=== PATIENT | male | born 1945 | race Hispanic/Latino ===

== ENCOUNTER 2021-11-08 10:06 | Inpatient (IN) | payer MEDICARE ==
[~2021-11-08] VITALS: Ht 165.1 cm; Wt 85.7 kg
[2021-11-08 11:01] LABS: ALBUMIN 2.6 g/dL (3.5-5.0); ALBUMIN/GLOBULIN RATIO 0.6 (0.8-2.0); ANION GAP 17.3 mmol/L (8-16); CREATININE, SERUM 5.16 mg/dL (0.72-1.25); POTASSIUM 3.3 mmol/L (3.5-5.1)
[2021-11-08 11:04] LABS: CALCIUM 6.7 mg/dL (8.4-10.2)
[2021-11-08 11:10] LABS: BASOPHILS # (AUTO) 0.1 (0.0-0.1); BASOPHILS % 0.5 % (0.0-1.0); EOSINOPHILS % 8.3 % (0.0-6.0); HEMATOCRIT 22.7 % (38.2-49.6); LYMPHOCYTES # (AUTO) 0.7 (1.0-3.2); LYMPHOCYTES % 5.8 % (18.0-39.1); MEAN CORPUSCULAR HGB CONC 30.8 g/dL (31-35); MEAN CORPUSCULAR VOLUME 97.4 fL (81-99); MONOCYTES % 7.9 % (4.4-11.3); NEUTROPHILS # (AUTO) 9.5 (2.1-6.9); NEUTROPHILS % 76.9 % (38.7-80.0); PLATELET COUNT 286 x10e3/uL (140-360); RED BLOOD COUNT 2.33 x10e6/uL (4.3-5.7); RED CELL DISTRIBUTION WIDTH 14.3 % (11.7-14.4)
[2021-11-08] MEDS ORDERED: HYDRALAZINE HCL 20 MG/ML VIAL IV STA (11:56)
[2021-11-08] MEDS ORDERED: ASPIRIN 81 MG CHEW TAB PO ONE (12:30)
[2021-11-08] MEDS ORDERED: CLONIDINE HCL 0.1 MG TAB PO PRN (13:45)
[2021-11-08] MEDS ORDERED: ONDANSETRON HCL INJ 2MG/ML 2ML 2 MG/ML VIAL IV PRN (13:45)
[2021-11-08] MEDS ORDERED: CALCIUM CHLORIDE 13.6 MEQ in SODIUM CHLORIDE 0.9% 100 ML 100 ML IV ONE (14:00)
[2021-11-08 14:08] LABS: % IRON SATURATION 16 % (15-50); IRON 30 ug/dL (65-175); TOTAL IRON BINDING CAPACITY 189 ug/dL (261-478); TRANSFERRIN 135 mg/dL (174-364)
[2021-11-08] MEDS ORDERED: POTASSIUM CHLORIDE 10MEQ EA PO ONE (14:30)
[2021-11-08 16:27] LABS: HEMATOCRIT 21.8 % (38.2-49.6)
[2021-11-08 16:29] LABS: HEMOGLOBIN 6.7 g/dL (14.0-18.0)
[2021-11-08] MEDS ORDERED: SODIUM CHLORIDE 0.9% 250ML 250 ML IV ONE (16:30)
[2021-11-08] MEDS: CARVEDILOL 3.125 MG TAB PO SCH (16:32)
[2021-11-08] MEDS: IRON SUCROSE 100 MG in SODIUM CHLORIDE 0.9% 100 ML 100 ML IV SCH (16:32)
[2021-11-08 16:36] LABS: CLARITY,URINE CLEAR (CLEAR); COLOR,URINE YELLOW (YELLOW); KETONES,URINE NEGATIVE (NEGATIVE); LEUKOCYTE ESTERASE ,URINE TRACE (NEGATIVE); NITRITE,URINE NEGATIVE (NEGATIVE); PROTEIN,URINE DIPSTICK >=300 (NEGATIVE); URINE UROBILINOGEN 0.2 mg/dL (0.2 - 1)
[2021-11-08 16:46] LABS: BACTERIA,URINE MANY /HPF; WBC,URINE (MAN) >50 /HPF (0-5)
[2021-11-08] MEDS ORDERED: FUROSEMIDE INJ 10 MG/ML 4 ML VIAL IV ONE (19:00)
[2021-11-08] MEDS: CLONIDINE HCL 0.1 MG TAB PO PRN (19:06)
[2021-11-08 19:39] LABS: CREATINE KINASE MB 4.8 ng/mL (0-5.0)
[2021-11-08] MEDS: HYDRALAZINE HCL 20 MG/ML VIAL IV PRN (20:04)
[2021-11-08] MEDS: FINASTERIDE 5 MG TAB PO SCH (20:43)
[2021-11-08] MEDS: ATORVASTATIN 40 MG TAB PO SCH (20:43)
[2021-11-08] MEDS: NIFEDIPINE CR 30 MG TAB PO SCH (21:00)
[2021-11-09] VITALS (7 sets, daily range): BP systolic 125–168; BP diastolic 56–84
[2021-11-09] MEDS: CLONIDINE HCL 0.1 MG TAB PO PRN (01:04)
[2021-11-09 03:34] LABS: CREATINE KINASE MB 4.6 ng/mL (0-5.0)
[2021-11-09] MEDS: LEVOTHYROXINE SODIUM 75 MCG TAB PO SCH (05:50)
[2021-11-09 05:55] LABS: BASOPHILS # (AUTO) 0.1 (0.0-0.1); BASOPHILS % 0.4 % (0.0-1.0); EOSINOPHILS % 8.8 % (0.0-6.0); HEMATOCRIT 21.4 % (38.2-49.6); LYMPHOCYTES # (AUTO) 0.6 (1.0-3.2); LYMPHOCYTES % 5.2 % (18.0-39.1); MEAN CORPUSCULAR HEMOGLOBIN 29.9 pg (28-32); MEAN CORPUSCULAR HGB CONC 31.3 g/dL (31-35); MEAN CORPUSCULAR VOLUME 95.5 fL (81-99); MONOCYTES # (AUTO) 0.9 (0.2-0.8); MONOCYTES % 7.9 % (4.4-11.3); NEUTROPHILS # (AUTO) 8.9 (2.1-6.9); NEUTROPHILS % 77.2 % (38.7-80.0); PLATELET COUNT 264 x10e3/uL (140-360); RED BLOOD COUNT 2.24 x10e6/uL (4.3-5.7); RED CELL DISTRIBUTION WIDTH 14.4 % (11.7-14.4)
[2021-11-09 06:03] LABS: ALBUMIN 2.5 g/dL (3.5-5.0); ALBUMIN/GLOBULIN RATIO 0.6 (0.8-2.0); ANION GAP 16.5 mmol/L (8-16); CALCIUM 7.2 mg/dL (8.4-10.2); CREATININE, SERUM 5.08 mg/dL (0.72-1.25); POTASSIUM 3.5 mmol/L (3.5-5.1)
[2021-11-09 06:26] LABS: HEMOGLOBIN 6.7 g/dL (14.0-18.0)
[2021-11-09] MEDS: CYANOCOBALAMIN INJ 1,000 MCG/ML VIAL IM SCH ×2 (07:16→12:21)
[2021-11-09] MEDS: FOLIC ACID 1 MG TAB PO SCH ×2 (07:16→12:21)
[2021-11-09] MEDS: CARVEDILOL 3.125 MG TAB PO SCH (07:16)
[2021-11-09] MEDS: ISOSORBIDE MONONITRATE 30 MG TAB CR PO SCH ×2 (07:17→12:21)
[2021-11-09] MEDS: CALCITRIOL 0.25 MCG CAP PO SCH ×2 (07:17→12:22)
[2021-11-09] MEDS ORDERED: IRON SUCROSE 100 MG in SODIUM CHLORIDE 0.9% 100 ML 100 ML IV SCH (09:00)
[2021-11-09] MEDS: CARVEDILOL 12.5 MG TAB PO SCH ×3 (09:00→17:50)
[2021-11-09] MEDS: FUROSEMIDE INJ 10 MG/ML 4 ML VIAL IV SCH ×2 (12:21→20:54)
[2021-11-09] MEDS: SEVELAMER CARBONATE 800 MG TAB PO SCH ×2 (12:21→17:50)
[2021-11-09] MEDS ORDERED: LIDOCAINE HCL 2% LOCAL INJ 5 ML SDV VIAL INJ ONE (12:54)
[2021-11-09] MEDS ORDERED: PROPOFOL IV EMULSION 10 MG/ML 20 ML VIAL ONE (12:54)
[2021-11-09] MEDS ORDERED: FENTANYL CITRATE/PF 100MCG/2 ML INJ ONE (13:21)
[2021-11-09] MEDS ORDERED: MIDAZOLAM HCL 2 MG/2 ML VIAL ONE (13:21)
[2021-11-09 14:30] LABS: CREATINE KINASE MB 5.7 ng/mL (0-5.0)
[2021-11-09] MEDS ORDERED: EPOETIN ALFA-EPBX 10,000 UNIT/ML VIAL SC SCH (14:30)
[2021-11-09] MEDS: IRON SUCROSE 100 MG in SODIUM CHLORIDE 0.9% 100 ML 100 ML IV SCH (17:49)
[2021-11-09] MEDS: ATORVASTATIN 40 MG TAB PO SCH (20:54)
[2021-11-09] MEDS: FINASTERIDE 5 MG TAB PO SCH (20:55)
[2021-11-09] MEDS: NIFEDIPINE CR 30 MG TAB PO SCH (20:55)
[2021-11-10 02:00] VITALS: BP 123/35
[2021-11-10 05:07] LABS: HEMATOCRIT 21.2 % (38.2-49.6)
[2021-11-10 05:27] LABS: ANION GAP 18.9 mmol/L (8-16); CALCIUM 7.6 mg/dL (8.4-10.2); CREATININE, SERUM 5.38 mg/dL (0.72-1.25); POTASSIUM 3.9 mmol/L (3.5-5.1)
[2021-11-10 05:42] LABS: HEMOGLOBIN 6.3 g/dL (14.0-18.0)
[2021-11-10] MEDS: LEVOTHYROXINE SODIUM 75 MCG TAB PO SCH (06:06)
[2021-11-10 08:00] VITALS: BP 143/67
[2021-11-10] MEDS: SEVELAMER CARBONATE 800 MG TAB PO SCH ×3 (08:00→17:00)
[2021-11-10] MEDS: ISOSORBIDE MONONITRATE 30 MG TAB CR PO SCH (09:00)
[2021-11-10] MEDS: FOLIC ACID 1 MG TAB PO SCH (09:00)
[2021-11-10] MEDS: FUROSEMIDE INJ 10 MG/ML 4 ML VIAL IV SCH ×2 (09:00→21:10)
[2021-11-10] MEDS: CALCITRIOL 0.25 MCG CAP PO SCH (09:00)
[2021-11-10] MEDS: CARVEDILOL 12.5 MG TAB PO SCH ×2 (09:00→17:38)
[2021-11-10] MEDS: CYANOCOBALAMIN INJ 1,000 MCG/ML VIAL IM SCH (09:00)
[2021-11-10] MEDS: METOLAZONE 5 MG TAB PO SCH (10:00)
[2021-11-10 10:20] LABS: INR 1.04; PROTHROMBIN TIME 14.5 seconds (11.9-14.5)
[2021-11-10 12:05] VITALS: BP 160/73
[2021-11-10] MEDS ORDERED: SODIUM CHLORIDE 0.9% 500ML 500 ML ONE (13:33)
[2021-11-10] MEDS ORDERED: HEPARIN SOD/SOD CHLORIDE 1,000 ML ONE (13:33)
[2021-11-10] MEDS ORDERED: MIDAZOLAM HCL 2 MG/2 ML VIAL ONE (13:34)
[2021-11-10] MEDS ORDERED: LIDOCAINE HCL 2% LOCAL 20 ML VIAL ONE (13:34)
[2021-11-10] MEDS ORDERED: FENTANYL CITRATE/PF 100MCG/2 ML INJ ONE (13:34)
[2021-11-10] MEDS ORDERED: HEPARIN SOD (PORCINE) 1000 UNIT/ML 30ML ONE (13:35)
[2021-11-10] MEDS ORDERED: ONDANSETRON HCL 4 MG ORAL DISINTEGRATING TAB PO PRN (13:45)
[2021-11-10] MEDS ORDERED: HEPARIN SOD (PORCINE) 1000 UNIT/ML SDV IV PRN (14:00)
[2021-11-10] MEDS ORDERED: MANNITOL 25% 12.5GM/50 ML VIAL IV PRN (14:00)
[2021-11-10] MEDS ORDERED: SODIUM CHLORIDE 0.9% 1000ML 2,000 ML IV PRN (14:00)
[2021-11-10] MEDS ORDERED: SODIUM CHLORIDE 0.9% 250ML 500 ML IV PRN (14:00)
[2021-11-10] MEDS ORDERED: ALBUMIN 25% 12.5GM 0.25 GM/ML BTL IV PRN (14:00)
[2021-11-10] MEDS ORDERED: SODIUM CHLORIDE 0.9% 50ML 50 ML ONE (14:27)
[2021-11-10] MEDS: IRON SUCROSE 100 MG in SODIUM CHLORIDE 0.9% 100 ML 100 ML IV SCH (17:35)
[2021-11-10] MEDS: PANTOPRAZOLE SOD 40 MG TABEC PO SCH (17:38)
[2021-11-10 20:00] VITALS: BP 166/75
[2021-11-10] MEDS: FINASTERIDE 5 MG TAB PO SCH (20:31)
[2021-11-10] MEDS: ATORVASTATIN 40 MG TAB PO SCH (20:31)
[2021-11-10] MEDS: NIFEDIPINE CR 30 MG TAB PO SCH (20:31)
[2021-11-10] MEDS: HYDRALAZINE HCL 20 MG/ML VIAL IV PRN (21:10)
[2021-11-10 21:13] VITALS: BP 166/75
[2021-11-11] VITALS (9 sets, daily range): BP systolic 133–200; BP diastolic 66–103
[2021-11-11] MEDS: LEVOTHYROXINE SODIUM 75 MCG TAB PO SCH (05:56)
[2021-11-11] MEDS: HYDRALAZINE HCL 20 MG/ML VIAL IV PRN ×2 (07:23→18:22)
[2021-11-11] MEDS: PANTOPRAZOLE SOD 40 MG TABEC PO SCH ×2 (07:30→16:40)
[2021-11-11] MEDS: SEVELAMER CARBONATE 800 MG TAB PO SCH ×3 (08:00→16:40)
[2021-11-11] MEDS ORDERED: EPOETIN ALFA-EPBX 10,000 UNIT/ML VIAL SC SCH ×2 (09:00→10:30)
[2021-11-11] MEDS: CARVEDILOL 12.5 MG TAB PO SCH ×2 (09:36→20:33)
[2021-11-11] MEDS: METOLAZONE 5 MG TAB PO SCH (09:36)
[2021-11-11] MEDS: FOLIC ACID 1 MG TAB PO SCH (09:36)
[2021-11-11] MEDS: ISOSORBIDE MONONITRATE 30 MG TAB CR PO SCH (09:36)
[2021-11-11] MEDS: CALCITRIOL 0.25 MCG CAP PO SCH (09:36)
[2021-11-11] MEDS: CLONIDINE HCL 0.1 MG TAB PO PRN ×2 (09:37→15:09)
[2021-11-11] MEDS: FUROSEMIDE INJ 10 MG/ML 4 ML VIAL IV SCH ×2 (10:30→22:01)
[2021-11-11] MEDS: CYANOCOBALAMIN INJ 1,000 MCG/ML VIAL IM SCH (10:30)
[2021-11-11] MEDS: IRON SUCROSE 100 MG in SODIUM CHLORIDE 0.9% 100 ML 100 ML IV SCH (15:09)
[2021-11-11] MEDS: LOSARTAN POTASSIUM 25 MG TAB PO SCH (16:26)
[2021-11-11] MEDS: ATORVASTATIN 40 MG TAB PO SCH (21:21)
[2021-11-11] MEDS: NIFEDIPINE CR 30 MG TAB PO SCH (21:21)
[2021-11-11] MEDS: FINASTERIDE 5 MG TAB PO SCH (21:21)
[2021-11-12] VITALS (8 sets, daily range): BP systolic 132–161; BP diastolic 50–88
[2021-11-12 05:37] LABS: HEMATOCRIT 20.9 % (38.2-49.6)
[2021-11-12 05:50] LABS: HEMOGLOBIN 6.5 g/dL (14.0-18.0)
[2021-11-12] MEDS: LEVOTHYROXINE SODIUM 75 MCG TAB PO SCH (06:22)
[2021-11-12] MEDS: CALCITRIOL 0.25 MCG CAP PO SCH (08:52)
[2021-11-12] MEDS: ISOSORBIDE MONONITRATE 30 MG TAB CR PO SCH (08:53)
[2021-11-12] MEDS: METOLAZONE 5 MG TAB PO SCH (08:53)
[2021-11-12] MEDS: FOLIC ACID 1 MG TAB PO SCH (08:54)
[2021-11-12] MEDS: CYANOCOBALAMIN INJ 1,000 MCG/ML VIAL IM SCH (08:54)
[2021-11-12] MEDS: LOSARTAN POTASSIUM 25 MG TAB PO SCH (08:54)
[2021-11-12] MEDS: CARVEDILOL 12.5 MG TAB PO SCH ×2 (08:54→21:01)
[2021-11-12] MEDS: SEVELAMER CARBONATE 800 MG TAB PO SCH ×3 (08:56→17:09)
[2021-11-12] MEDS: PANTOPRAZOLE SOD 40 MG TABEC PO SCH ×2 (08:56→17:11)
[2021-11-12] MEDS: FUROSEMIDE INJ 10 MG/ML 4 ML VIAL IV SCH ×3 (08:57→21:53)
[2021-11-12] MEDS ORDERED: HEPARIN SOD (PORCINE) 1000 UNIT/ML SDV IV PRN (13:15)
[2021-11-12] MEDS: IRON SUCROSE 100 MG in SODIUM CHLORIDE 0.9% 100 ML 100 ML IV SCH (16:30)
[2021-11-12] MEDS: CLONIDINE HCL 0.1 MG TAB PO PRN (17:28)
[2021-11-12] MEDS ORDERED: DIPHENHYDRAMINE HCL 25 MG CAP PO PRN (19:00)
[2021-11-12] MEDS ORDERED: PEG (High)/E-LYTE SOLN 4,000 ML BTL PO ONE (19:15)
[2021-11-12] MEDS: NIFEDIPINE CR 30 MG TAB PO SCH (21:01)
[2021-11-12] MEDS: FINASTERIDE 5 MG TAB PO SCH (21:01)
[2021-11-12] MEDS: ATORVASTATIN 40 MG TAB PO SCH (21:01)
[2021-11-13] VITALS (7 sets, daily range): BP systolic 136–161; BP diastolic 56–72
[2021-11-13] MEDS: LEVOTHYROXINE SODIUM 75 MCG TAB PO SCH (06:00)
[2021-11-13] MEDS: PANTOPRAZOLE SOD 40 MG TABEC PO SCH ×2 (07:30→16:48)
[2021-11-13] MEDS: SEVELAMER CARBONATE 800 MG TAB PO SCH ×3 (07:48→16:48)
[2021-11-13 08:13] LABS: CALCIUM 7.5 mg/dL (8.4-10.2); CREATININE, SERUM 4.59 mg/dL (0.72-1.25)
[2021-11-13] MEDS: CARVEDILOL 12.5 MG TAB PO SCH ×2 (10:27→21:25)
[2021-11-13] MEDS: METOLAZONE 5 MG TAB PO SCH (10:27)
[2021-11-13] MEDS: FOLIC ACID 1 MG TAB PO SCH (10:27)
[2021-11-13] MEDS: FUROSEMIDE INJ 10 MG/ML 4 ML VIAL IV SCH ×2 (10:27→21:27)
[2021-11-13] MEDS: CALCITRIOL 0.25 MCG CAP PO SCH (10:27)
[2021-11-13] MEDS: CYANOCOBALAMIN INJ 1,000 MCG/ML VIAL IM SCH (10:27)
[2021-11-13] MEDS: LOSARTAN POTASSIUM 25 MG TAB PO SCH (10:27)
[2021-11-13] MEDS: ISOSORBIDE MONONITRATE 30 MG TAB CR PO SCH (10:27)
[2021-11-13] MEDS ORDERED: PEG (High)/E-LYTE SOLN 4,000 ML BTL PO ONE ×2 (10:30→20:00)
[2021-11-13] MEDS ORDERED: MIDAZOLAM HCL 2 MG/2 ML VIAL ONE (12:11)
[2021-11-13] MEDS ORDERED: FENTANYL CITRATE/PF 100MCG/2 ML INJ ONE (12:11)
[2021-11-13] MEDS ORDERED: PROPOFOL IV EMULSION 10 MG/ML 20 ML VIAL ONE (13:20)
[2021-11-13] MEDS ORDERED: LIDOCAINE HCL 2% LOCAL INJ 5 ML SDV VIAL INJ ONE (13:20)
[2021-11-13] MEDS ORDERED: METOCLOPRAMIDE HCL 10 MG/2ML VIAL ONE (13:20)
[2021-11-13] MEDS ORDERED: POVIDONE IODINE 0.05% 0.05 % ML PO ONE (13:20)
[2021-11-13] MEDS ORDERED: GLUCAGON FOR INJ 1 MG VIAL ONE (13:20)
[2021-11-13] MEDS ORDERED: ONDANSETRON HCL INJ 2MG/ML 2ML 2 MG/ML VIAL ONE (13:20)
[2021-11-13] MEDS ORDERED: HYOSCYAMINE SULFATE 0.5 MG/ML INJ ONE (13:20)
[2021-11-13] MEDS: IRON SUCROSE 100 MG in SODIUM CHLORIDE 0.9% 100 ML 100 ML IV SCH (16:48)
[2021-11-13] MEDS: ATORVASTATIN 40 MG TAB PO SCH (21:25)
[2021-11-13] MEDS: FINASTERIDE 5 MG TAB PO SCH (21:26)
[2021-11-13] MEDS: NIFEDIPINE CR 30 MG TAB PO SCH (21:26)
[2021-11-13] MEDS ORDERED: BISACODYL 5 MG TAB EC PO ONE ×2 (22:45→23:15)
[2021-11-14] VITALS (7 sets, daily range): BP systolic 137–172; BP diastolic 61–91
[2021-11-14] MEDS: LEVOTHYROXINE SODIUM 75 MCG TAB PO SCH (05:47)
[2021-11-14] MEDS ORDERED: CITRATE OF MAGNESIA 300ML BOTTLE PO ONE (07:00)
[2021-11-14] MEDS: PANTOPRAZOLE SOD 40 MG TABEC PO SCH ×2 (07:30→16:45)
[2021-11-14] MEDS: SEVELAMER CARBONATE 800 MG TAB PO SCH ×3 (08:00→16:45)
[2021-11-14] MEDS: FUROSEMIDE INJ 10 MG/ML 4 ML VIAL IV SCH ×2 (09:18→20:41)
[2021-11-14] MEDS: HYDRALAZINE HCL 20 MG/ML VIAL IV PRN (09:18)
[2021-11-14] MEDS: CYANOCOBALAMIN INJ 1,000 MCG/ML VIAL IM SCH (09:18)
[2021-11-14] MEDS ORDERED: HYOSCYAMINE SULFATE 0.5 MG/ML INJ ONE (12:08)
[2021-11-14] MEDS ORDERED: PROPOFOL IV EMULSION 10 MG/ML 20 ML VIAL ONE (12:08)
[2021-11-14] MEDS ORDERED: FENTANYL CITRATE/PF 100MCG/2 ML INJ ONE (12:24)
[2021-11-14] MEDS ORDERED: MIDAZOLAM HCL 2 MG/2 ML VIAL ONE (12:24)
[2021-11-14] MEDS: IRON SUCROSE 100 MG in SODIUM CHLORIDE 0.9% 100 ML 100 ML IV SCH (14:00)
[2021-11-14 14:12] LABS: ALPHA 2 GLOBULIN URINE PEP 5.7 % (.)
[2021-11-14] MEDS ORDERED: SODIUM CHLORIDE 0.9% 250ML 250 ML ONE (14:12)
[2021-11-14 14:56] LABS: HEMATOCRIT 21.7 % (38.2-49.6)
[2021-11-14 14:58] LABS: HEMOGLOBIN 6.8 g/dL (14.0-18.0)
[2021-11-14 15:13] LABS: ANION GAP 16.6 mmol/L (8-16); CALCIUM 8.1 mg/dL (8.4-10.2); CREATININE, SERUM 4.33 mg/dL (0.72-1.25); POTASSIUM 3.6 mmol/L (3.5-5.1)
[2021-11-14] MEDS: FOLIC ACID 1 MG TAB PO SCH (16:45)
[2021-11-14] MEDS: LOSARTAN POTASSIUM 25 MG TAB PO SCH (16:45)
[2021-11-14] MEDS: METOLAZONE 5 MG TAB PO SCH (16:45)
[2021-11-14] MEDS: CALCITRIOL 0.25 MCG CAP PO SCH (16:45)
[2021-11-14] MEDS: CARVEDILOL 12.5 MG TAB PO SCH ×2 (16:45→20:41)
[2021-11-14] MEDS: ISOSORBIDE MONONITRATE 30 MG TAB CR PO SCH (16:45)
[2021-11-14] MEDS: ATORVASTATIN 40 MG TAB PO SCH (20:41)
[2021-11-14] MEDS: NIFEDIPINE CR 30 MG TAB PO SCH (20:42)
[2021-11-14] MEDS: FINASTERIDE 5 MG TAB PO SCH (20:42)
[2021-11-15] VITALS (10 sets, daily range): BP systolic 114–186; BP diastolic 51–88
[2021-11-15] MEDS: HYDRALAZINE HCL 20 MG/ML VIAL IV PRN ×2 (00:22→23:32)
[2021-11-15] MEDS: LEVOTHYROXINE SODIUM 75 MCG TAB PO SCH (05:14)
[2021-11-15 06:10] LABS: MEAN CORPUSCULAR HEMOGLOBIN 30.5 pg (28-32); MEAN CORPUSCULAR HGB CONC 30.7 g/dL (31-35); MEAN CORPUSCULAR VOLUME 99.5 fL (81-99); PLATELET COUNT 201 x10e3/uL (140-360); RED CELL DISTRIBUTION WIDTH 14.6 % (11.7-14.4)
[2021-11-15 06:15] LABS: HEMATOCRIT 19.9 % (38.2-49.6); HEMOGLOBIN 6.1 g/dL (14.0-18.0)
[2021-11-15] MEDS: PANTOPRAZOLE SOD 40 MG TABEC PO SCH ×2 (07:30→17:05)
[2021-11-15] MEDS: SEVELAMER CARBONATE 800 MG TAB PO SCH ×3 (08:00→17:05)
[2021-11-15 08:20] LABS: EOSINOPHILS % (MANUAL) 10 % (0-7); LYMPHOCYTES % (MANUAL) 4 % (19-48); MONOCYTES % (MANUAL) 3 % (3.4-9.0); NEUTROPHILS % (MANUAL) 82 % (40-74); PLATELET ESTIMATE ADEQUATE; PLATELET MORPHOLOGY COMMENT NORMAL; RBC MORPHOLOGY COMMENT NORMAL
[2021-11-15] MEDS: CYANOCOBALAMIN INJ 1,000 MCG/ML VIAL IM SCH (08:58)
[2021-11-15] MEDS: FUROSEMIDE INJ 10 MG/ML 4 ML VIAL IV SCH ×2 (09:00→21:36)
[2021-11-15] MEDS ORDERED: HEPARIN SOD (PORCINE) 1000 UNIT/ML SDV IV PRN (09:00)
[2021-11-15] MEDS: CARVEDILOL 12.5 MG TAB PO SCH ×2 (09:00→21:36)
[2021-11-15] MEDS: FOLIC ACID 1 MG TAB PO SCH (14:04)
[2021-11-15] MEDS: ISOSORBIDE MONONITRATE 30 MG TAB CR PO SCH (14:04)
[2021-11-15] MEDS: LOSARTAN POTASSIUM 25 MG TAB PO SCH (14:04)
[2021-11-15] MEDS: CALCITRIOL 0.25 MCG CAP PO SCH (14:05)
[2021-11-15] MEDS: METOLAZONE 5 MG TAB PO SCH (14:07)
[2021-11-15] MEDS: ATORVASTATIN 40 MG TAB PO SCH (21:36)
[2021-11-15] MEDS: FINASTERIDE 5 MG TAB PO SCH (21:37)
[2021-11-15] MEDS: NIFEDIPINE CR 30 MG TAB PO SCH (21:37)
[2021-11-16 04:00] VITALS: BP 154/50
[2021-11-16] MEDS: LEVOTHYROXINE SODIUM 75 MCG TAB PO SCH (05:20)
[2021-11-16] MEDS: PANTOPRAZOLE SOD 40 MG TABEC PO SCH ×2 (07:30→16:56)
[2021-11-16 07:52] VITALS: BP 138/50
[2021-11-16 07:58] VITALS: BP 138/50
[2021-11-16] MEDS: SEVELAMER CARBONATE 800 MG TAB PO SCH ×4 (08:00→19:46)
[2021-11-16] MEDS: CYANOCOBALAMIN INJ 1,000 MCG/ML VIAL IM SCH (08:52)
[2021-11-16] MEDS: FUROSEMIDE INJ 10 MG/ML 4 ML VIAL IV SCH ×2 (08:52→20:32)
[2021-11-16] MEDS: IRON SUCROSE 100 MG in SODIUM CHLORIDE 0.9% 100 ML 100 ML IV SCH (08:53)
[2021-11-16 10:19] LABS: HEMATOCRIT 24.1 % (38.2-49.6); HEMOGLOBIN 7.4 g/dL (14.0-18.0)
[2021-11-16] MEDS: CARVEDILOL 12.5 MG TAB PO SCH ×2 (10:22→20:32)
[2021-11-16] MEDS: LOSARTAN POTASSIUM 25 MG TAB PO SCH (10:22)
[2021-11-16] MEDS: FOLIC ACID 1 MG TAB PO SCH (10:22)
[2021-11-16] MEDS: METOLAZONE 5 MG TAB PO SCH (10:23)
[2021-11-16] MEDS: CALCITRIOL 0.25 MCG CAP PO SCH (10:23)
[2021-11-16] MEDS: ISOSORBIDE MONONITRATE 30 MG TAB CR PO SCH (10:23)
[2021-11-16] MEDS ORDERED: EPOETIN ALFA-EPBX 10,000 UNIT/ML VIAL SC ONE (11:00)
[2021-11-16 12:00] VITALS: BP 178/64
[2021-11-16 16:00] VITALS: BP 198/66
[2021-11-16] MEDS: ACETAMINOPHEN 325 MG TAB PO PRN (16:57)
[2021-11-16] MEDS: HYDRALAZINE HCL 20 MG/ML VIAL IV PRN (17:02)
[2021-11-16 20:00] VITALS: BP 152/54
[2021-11-16] MEDS: NIFEDIPINE CR 30 MG TAB PO SCH (20:32)
[2021-11-16] MEDS: FINASTERIDE 5 MG TAB PO SCH (20:32)
[2021-11-16] MEDS: ATORVASTATIN 40 MG TAB PO SCH (20:32)
[2021-11-17] VITALS (8 sets, daily range): BP systolic 134–178; BP diastolic 53–74
[2021-11-17] MEDS: LEVOTHYROXINE SODIUM 75 MCG TAB PO SCH (06:00)
[2021-11-17] MEDS ORDERED: SODIUM CHLORIDE 0.9% 1000ML 2,000 ML ONE (06:29)
[2021-11-17 07:01] LABS: ANION GAP 13.6 mmol/L (8-16); CALCIUM 7.9 mg/dL (8.4-10.2); CREATININE, SERUM 5.81 mg/dL (0.72-1.25); POTASSIUM 3.6 mmol/L (3.5-5.1)
[2021-11-17] MEDS: PANTOPRAZOLE SOD 40 MG TABEC PO SCH ×2 (07:30→16:48)
[2021-11-17] MEDS ORDERED: HEPARIN SOD (PORCINE) 1000 UNIT/ML SDV IV PRN (07:45)
[2021-11-17] MEDS: SEVELAMER CARBONATE 800 MG TAB PO SCH ×3 (08:00→16:48)
[2021-11-17 11:53] LABS: BASOPHILS # (AUTO) 0.1 (0.0-0.1); BASOPHILS % 0.3 % (0.0-1.0); EOSINOPHILS % 0.1 % (0.0-6.0); HEMATOCRIT 22.2 % (38.2-49.6); LYMPHOCYTES # (AUTO) 0.5 (1.0-3.2); MEAN CORPUSCULAR HEMOGLOBIN 30.8 pg (28-32); MEAN CORPUSCULAR HGB CONC 30.6 g/dL (31-35); MEAN CORPUSCULAR VOLUME 100.5 fL (81-99); MONOCYTES # (AUTO) 1.9 (0.2-0.8); MONOCYTES % 7.3 % (4.4-11.3); NEUTROPHILS # (AUTO) 23.3 (2.1-6.9); NEUTROPHILS % 89.6 % (38.7-80.0); PLATELET COUNT 222 x10e3/uL (140-360); RED BLOOD COUNT 2.21 x10e6/uL (4.3-5.7); RED CELL DISTRIBUTION WIDTH 15.2 % (11.7-14.4)
[2021-11-17 11:55] LABS: HEMOGLOBIN 6.8 g/dL (14.0-18.0)
[2021-11-17] MEDS: FUROSEMIDE INJ 10 MG/ML 4 ML VIAL IV SCH ×2 (12:25→20:06)
[2021-11-17] MEDS: IRON SUCROSE 100 MG in SODIUM CHLORIDE 0.9% 100 ML 100 ML IV SCH (12:25)
[2021-11-17] MEDS: CYANOCOBALAMIN INJ 1,000 MCG/ML VIAL IM SCH (12:26)
[2021-11-17] MEDS: CARVEDILOL 12.5 MG TAB PO SCH ×2 (12:28→20:06)
[2021-11-17] MEDS: FOLIC ACID 1 MG TAB PO SCH (12:28)
[2021-11-17] MEDS: METOLAZONE 5 MG TAB PO SCH (12:29)
[2021-11-17] MEDS: ISOSORBIDE MONONITRATE 30 MG TAB CR PO SCH (12:29)
[2021-11-17] MEDS: CALCITRIOL 0.25 MCG CAP PO SCH (12:29)
[2021-11-17 12:51] LABS: BAND NEUTROPHILS % (MANUAL) 3 %; EOSINOPHILS % (MANUAL) 1 % (0-7); LYMPHOCYTES % (MANUAL) 2 % (19-48); MONOCYTES % (MANUAL) 6 % (3.4-9.0); NEUTROPHILS % (MANUAL) 87 % (40-74)
[2021-11-17 12:52] LABS: PLATELET ESTIMATE ADEQUATE; PLATELET MORPHOLOGY COMMENT NORMAL; RBC MORPHOLOGY COMMENT NORMAL
[2021-11-17] MEDS: ACETAMINOPHEN 325 MG TAB PO PRN ×2 (14:38→23:37)
[2021-11-17] MEDS ORDERED: CEFTRIAXONE 1 GM in SODIUM CHLORIDE 0.9% 50ML 50 ML IV SCH (15:00)
[2021-11-17] MEDS: Vancomycin IV 1 GM in SODIUM CHLORIDE 0.9% 250ML 250 ML IV SCH (16:48)
[2021-11-17] MEDS: FINASTERIDE 5 MG TAB PO SCH (20:06)
[2021-11-17] MEDS: NIFEDIPINE CR 30 MG TAB PO SCH (20:06)
[2021-11-17] MEDS: ATORVASTATIN 40 MG TAB PO SCH (20:06)
[2021-11-18] VITALS (11 sets, daily range): BP systolic 98–161; BP diastolic 50–85
[2021-11-18] MEDS: CLONIDINE HCL 0.1 MG TAB PO PRN (01:15)
[2021-11-18] MEDS: LEVOTHYROXINE SODIUM 75 MCG TAB PO SCH (05:43)
[2021-11-18 06:35] LABS: BASOPHILS # (AUTO) 0.1 (0.0-0.1); BASOPHILS % 0.4 % (0.0-1.0); EOSINOPHILS # (AUTO) 0.2 (0.0-0.4); EOSINOPHILS % 0.8 % (0.0-6.0); HEMATOCRIT 23.6 % (38.2-49.6); HEMOGLOBIN 7.3 g/dL (14.0-18.0); LYMPHOCYTES # (AUTO) 0.7 (1.0-3.2); LYMPHOCYTES % 3.7 % (18.0-39.1); MEAN CORPUSCULAR HEMOGLOBIN 30.8 pg (28-32); MEAN CORPUSCULAR HGB CONC 30.9 g/dL (31-35); MEAN CORPUSCULAR VOLUME 99.6 fL (81-99); MONOCYTES # (AUTO) 1.5 (0.2-0.8); MONOCYTES % 7.6 % (4.4-11.3); NEUTROPHILS # (AUTO) 16.8 (2.1-6.9); NEUTROPHILS % 86.8 % (38.7-80.0); PLATELET COUNT 218 x10e3/uL (140-360); RED BLOOD COUNT 2.37 x10e6/uL (4.3-5.7); RED CELL DISTRIBUTION WIDTH 15.1 % (11.7-14.4)
[2021-11-18] MEDS: PANTOPRAZOLE SOD 40 MG TABEC PO SCH ×2 (08:54→17:10)
[2021-11-18] MEDS: FUROSEMIDE INJ 10 MG/ML 4 ML VIAL IV SCH ×2 (08:55→20:33)
[2021-11-18] MEDS: CYANOCOBALAMIN INJ 1,000 MCG/ML VIAL IM SCH (08:55)
[2021-11-18] MEDS: SEVELAMER CARBONATE 800 MG TAB PO SCH ×3 (08:55→17:10)
[2021-11-18] MEDS: FOLIC ACID 1 MG TAB PO SCH (08:58)
[2021-11-18] MEDS: ISOSORBIDE MONONITRATE 30 MG TAB CR PO SCH (08:58)
[2021-11-18] MEDS: CARVEDILOL 12.5 MG TAB PO SCH ×2 (08:58→20:33)
[2021-11-18] MEDS: CALCITRIOL 0.25 MCG CAP PO SCH (08:59)
[2021-11-18] MEDS: METOLAZONE 5 MG TAB PO SCH (09:06)
[2021-11-18] MEDS: IRON SUCROSE 100 MG in SODIUM CHLORIDE 0.9% 100 ML 100 ML IV SCH (09:09)
[2021-11-18] MEDS: ATORVASTATIN 40 MG TAB PO SCH (20:33)
[2021-11-18] MEDS: NIFEDIPINE CR 30 MG TAB PO SCH (20:34)
[2021-11-18] MEDS: FINASTERIDE 5 MG TAB PO SCH (20:34)
[2021-11-18] MEDS: ACETAMINOPHEN 325 MG TAB PO PRN (20:35)
[2021-11-18] MEDS ORDERED: BISACODYL 5 MG TAB EC PO ONE (23:45)
[2021-11-19] VITALS (10 sets, daily range): BP systolic 91–156; BP diastolic 49–70
[2021-11-19] MEDS: LEVOTHYROXINE SODIUM 75 MCG TAB PO SCH (05:05)
[2021-11-19] MEDS: CARVEDILOL 12.5 MG TAB PO SCH ×2 (09:00→21:50)
[2021-11-19] MEDS: IRON SUCROSE 100 MG in SODIUM CHLORIDE 0.9% 100 ML 100 ML IV SCH (09:23)
[2021-11-19] MEDS: FUROSEMIDE INJ 10 MG/ML 4 ML VIAL IV SCH ×2 (09:23→21:50)
[2021-11-19] MEDS: SEVELAMER CARBONATE 800 MG TAB PO SCH ×3 (09:23→16:33)
[2021-11-19] MEDS: CYANOCOBALAMIN INJ 1,000 MCG/ML VIAL IM SCH (09:23)
[2021-11-19] MEDS: PANTOPRAZOLE SOD 40 MG TABEC PO SCH ×2 (09:23→16:32)
[2021-11-19] MEDS: METOLAZONE 5 MG TAB PO SCH (09:24)
[2021-11-19] MEDS: FOLIC ACID 1 MG TAB PO SCH (09:24)
[2021-11-19] MEDS: CALCITRIOL 0.25 MCG CAP PO SCH (09:24)
[2021-11-19] MEDS: ISOSORBIDE MONONITRATE 30 MG TAB CR PO SCH (09:24)
[2021-11-19] MEDS ORDERED: BISACODYL 5 MG TAB EC PO ONE ×2 (11:45→23:30)
[2021-11-19] MEDS: DOCUSATE SODIUM 100 MG CAP PO SCH (16:32)
[2021-11-19] MEDS: ATORVASTATIN 40 MG TAB PO SCH (21:50)
[2021-11-19] MEDS: FINASTERIDE 5 MG TAB PO SCH (21:50)
[2021-11-19] MEDS: NIFEDIPINE CR 30 MG TAB PO SCH (21:50)
[2021-11-20] VITALS (7 sets, daily range): BP systolic 153–178; BP diastolic 58–70
[2021-11-20 05:55] LABS: BASOPHILS # (AUTO) 0.1 (0.0-0.1); BASOPHILS % 0.4 % (0.0-1.0); EOSINOPHILS # (AUTO) 0.6 (0.0-0.4); EOSINOPHILS % 5.4 % (0.0-6.0); HEMATOCRIT 21.1 % (38.2-49.6); LYMPHOCYTES # (AUTO) 0.7 (1.0-3.2); LYMPHOCYTES % 5.9 % (18.0-39.1); MEAN CORPUSCULAR HGB CONC 31.8 g/dL (31-35); MEAN CORPUSCULAR VOLUME 94.6 fL (81-99); MONOCYTES # (AUTO) 1.4 (0.2-0.8); MONOCYTES % 12.1 % (4.4-11.3); NEUTROPHILS # (AUTO) 8.7 (2.1-6.9); NEUTROPHILS % 75.7 % (38.7-80.0); PLATELET COUNT 222 x10e3/uL (140-360); RED BLOOD COUNT 2.23 x10e6/uL (4.3-5.7); RED CELL DISTRIBUTION WIDTH 14.6 % (11.7-14.4)
[2021-11-20 06:06] LABS: HEMOGLOBIN 6.7 g/dL (14.0-18.0)
[2021-11-20] MEDS: LEVOTHYROXINE SODIUM 75 MCG TAB PO SCH (06:15)
[2021-11-20 06:35] LABS: ANION GAP 18.8 mmol/L (8-16); CALCIUM 7.8 mg/dL (8.4-10.2); CREATININE, SERUM 8.2 mg/dL (0.72-1.25); POTASSIUM 3.8 mmol/L (3.5-5.1)
[2021-11-20] MEDS: PANTOPRAZOLE SOD 40 MG TABEC PO SCH ×2 (07:30→17:30)
[2021-11-20] MEDS: SEVELAMER CARBONATE 800 MG TAB PO SCH ×3 (08:00→17:00)
[2021-11-20] MEDS: FUROSEMIDE INJ 10 MG/ML 4 ML VIAL IV SCH (09:00)
[2021-11-20] MEDS: CYANOCOBALAMIN INJ 1,000 MCG/ML VIAL IM SCH (09:00)
[2021-11-20] MEDS: IRON SUCROSE 100 MG in SODIUM CHLORIDE 0.9% 100 ML 100 ML IV SCH (09:00)
[2021-11-20] MEDS: CARVEDILOL 12.5 MG TAB PO SCH ×2 (09:00→22:20)
[2021-11-20] MEDS: FOLIC ACID 1 MG TAB PO SCH (09:00)
[2021-11-20] MEDS: ISOSORBIDE MONONITRATE 30 MG TAB CR PO SCH (09:00)
[2021-11-20] MEDS: DOCUSATE SODIUM 100 MG CAP PO SCH ×2 (09:00→13:39)
[2021-11-20] MEDS: CALCITRIOL 0.25 MCG CAP PO SCH (09:00)
[2021-11-20] MEDS: METOLAZONE 5 MG TAB PO SCH (09:00)
[2021-11-20 12:17] LABS: INR 1.11; PROTHROMBIN TIME 15.3 seconds (11.9-14.5)
[2021-11-20 12:18] LABS: PARTIAL THROMBOPLASTIN TIME 41.1 seconds (23.8-35.5)
[2021-11-20] MEDS ORDERED: POLYETHYLENE GLYCOL 3350 17 GM PACK PO SCH (12:45)
[2021-11-20] MEDS: EPOETIN ALFA-EPBX 10,000 UNIT/ML VIAL SC SCH (17:45)
[2021-11-20] MEDS: Vancomycin IV 1 GM in SODIUM CHLORIDE 0.9% 250ML 250 ML IV SCH (18:00)
[2021-11-20] MEDS: NIFEDIPINE CR 30 MG TAB PO SCH (22:20)
[2021-11-20] MEDS: ATORVASTATIN 40 MG TAB PO SCH (22:20)
[2021-11-20] MEDS: POLYETHYLENE GLYCOL 3350 17 GM PACK PO SCH (22:20)
[2021-11-20] MEDS: FINASTERIDE 5 MG TAB PO SCH (22:20)
[2021-11-20] MEDS ORDERED: BISACODYL 5 MG TAB EC PO ONE ×2 (23:45)
[2021-11-20] MEDS: HYDRALAZINE HCL 20 MG/ML VIAL IV PRN (23:59)
[2021-11-21] VITALS (10 sets, daily range): BP systolic 129–197; BP diastolic 48–68
[2021-11-21 05:29] LABS: HEMATOCRIT 21.9 % (38.2-49.6); MEAN CORPUSCULAR HEMOGLOBIN 29.7 pg (28-32); MEAN CORPUSCULAR HGB CONC 31.1 g/dL (31-35); MEAN CORPUSCULAR VOLUME 95.6 fL (81-99); PLATELET COUNT 238 x10e3/uL (140-360); RED BLOOD COUNT 2.29 x10e6/uL (4.3-5.7); RED CELL DISTRIBUTION WIDTH 14.7 % (11.7-14.4)
[2021-11-21 05:37] LABS: HEMOGLOBIN 6.8 g/dL (14.0-18.0)
[2021-11-21] MEDS: LEVOTHYROXINE SODIUM 75 MCG TAB PO SCH (06:00)
[2021-11-21] MEDS: PANTOPRAZOLE SOD 40 MG TABEC PO SCH ×2 (07:30→16:43)
[2021-11-21] MEDS: SEVELAMER CARBONATE 800 MG TAB PO SCH ×3 (08:00→16:44)
[2021-11-21] MEDS: DOCUSATE SODIUM 100 MG CAP PO SCH ×2 (08:24→16:43)
[2021-11-21] MEDS: IRON SUCROSE 100 MG in SODIUM CHLORIDE 0.9% 100 ML 100 ML IV SCH (08:24)
[2021-11-21] MEDS: CYANOCOBALAMIN INJ 1,000 MCG/ML VIAL IM SCH (08:24)
[2021-11-21] MEDS: CARVEDILOL 12.5 MG TAB PO SCH ×2 (08:24→20:35)
[2021-11-21] MEDS: ISOSORBIDE MONONITRATE 30 MG TAB CR PO SCH (08:25)
[2021-11-21] MEDS: FOLIC ACID 1 MG TAB PO SCH (08:25)
[2021-11-21] MEDS: CALCITRIOL 0.25 MCG CAP PO SCH (08:26)
[2021-11-21 08:47] LABS: EOSINOPHILS % (MANUAL) 9 % (0-7); LYMPHOCYTES % (MANUAL) 3 % (19-48); MONOCYTES % (MANUAL) 6 % (3.4-9.0); NEUTROPHILS % (MANUAL) 81 % (40-74); PLATELET ESTIMATE ADEQUATE; PLATELET MORPHOLOGY COMMENT NORMAL
[2021-11-21 08:48] LABS: RBC MORPHOLOGY COMMENT NORMAL
[2021-11-21] MEDS ORDERED: LIDOCAINE HCL 1% LOCAL INJ 20 ML VIAL ONE (11:50)
[2021-11-21] MEDS ORDERED: BUPIVACAINE 0.25% 30ML SDV ONE (11:50)
[2021-11-21] MEDS ORDERED: BUPIVACAINE HCL 0.5% INJ 30 ML VIAL INJ ONE (11:50)
[2021-11-21] MEDS ORDERED: Morphine 2mg Syringe 2 MG/ML SYR IV PRN (12:15)
[2021-11-21] MEDS ORDERED: HYDROCODONE/APAP 5MG-325MG TAB PO PRN (12:15)
[2021-11-21] MEDS ORDERED: ONDANSETRON HCL INJ 2MG/ML 2ML 2 MG/ML VIAL ONE (12:52)
[2021-11-21] MEDS ORDERED: KETOROLAC TROMETHAMINE 30 MG/ML VIAL ONE (12:52)
[2021-11-21] MEDS ORDERED: SEVOFLURANE INHAL SOLN 250 ML PEN BTL ONE (12:52)
[2021-11-21] MEDS ORDERED: PROPOFOL IV EMULSION 10 MG/ML 20 ML VIAL ONE (12:52)
[2021-11-21] MEDS ORDERED: DEXAMETHASONE SOD PHOS INJ 4 MG/ML SDV ONE (12:52)
[2021-11-21] MEDS ORDERED: ROCURONIUM BROMIDE 10 MG/ML 5ML VIAL IV ONE (12:52)
[2021-11-21] MEDS ORDERED: LIDOCAINE HCL 2% LOCAL INJ 5 ML SDV VIAL INJ ONE (12:52)
[2021-11-21] MEDS ORDERED: SUCCINYLCHOLINE CHLORIDE 20 MG/ML 10ML VIAL ONE (12:52)
[2021-11-21] MEDS ORDERED: POVIDONE IODINE 0.05% 0.05 % ML PO ONE (12:52)
[2021-11-21] MEDS ORDERED: MIDAZOLAM HCL 2 MG/2 ML VIAL ONE (13:16)
[2021-11-21] MEDS ORDERED: FENTANYL CITRATE/PF 100MCG/2 ML INJ ONE (13:16)
[2021-11-21] MEDS: Cefazolin 1 GM in SODIUM CHLORIDE 0.9% 50ML 50 ML IV SCH (17:37)
[2021-11-21] MEDS: POLYETHYLENE GLYCOL 3350 17 GM PACK PO SCH (20:35)
[2021-11-21] MEDS: FINASTERIDE 5 MG TAB PO SCH (20:35)
[2021-11-21] MEDS: ATORVASTATIN 40 MG TAB PO SCH (20:35)
[2021-11-21] MEDS: NIFEDIPINE CR 30 MG TAB PO SCH (20:35)
[2021-11-22] VITALS (8 sets, daily range): BP systolic 146–175; BP diastolic 55–70
[2021-11-22] MEDS: PANTOPRAZOLE SOD 40 MG TABEC PO SCH ×2 (06:29→16:38)
[2021-11-22] MEDS: LEVOTHYROXINE SODIUM 75 MCG TAB PO SCH (06:29)
[2021-11-22 07:16] LABS: ANION GAP 15.6 mmol/L (8-16); CALCIUM 7.4 mg/dL (8.4-10.2); CREATININE, SERUM 7.35 mg/dL (0.72-1.25); POTASSIUM 3.6 mmol/L (3.5-5.1)
[2021-11-22] MEDS: CARVEDILOL 12.5 MG TAB PO SCH ×2 (08:27→20:58)
[2021-11-22] MEDS: DOCUSATE SODIUM 100 MG CAP PO SCH ×2 (08:27→16:38)
[2021-11-22] MEDS: FOLIC ACID 1 MG TAB PO SCH (08:27)
[2021-11-22] MEDS: SEVELAMER CARBONATE 800 MG TAB PO SCH ×3 (08:27→16:38)
[2021-11-22] MEDS: ISOSORBIDE MONONITRATE 30 MG TAB CR PO SCH (08:27)
[2021-11-22] MEDS: IRON SUCROSE 100 MG in SODIUM CHLORIDE 0.9% 100 ML 100 ML IV SCH (08:27)
[2021-11-22] MEDS: CYANOCOBALAMIN INJ 1,000 MCG/ML VIAL IM SCH (08:27)
[2021-11-22] MEDS: CALCITRIOL 0.25 MCG CAP PO SCH (08:28)
[2021-11-22] MEDS: EPOETIN ALFA-EPBX 10,000 UNIT/ML VIAL SC SCH (15:33)
[2021-11-22] MEDS: Cefazolin 1 GM in SODIUM CHLORIDE 0.9% 50ML 50 ML IV SCH (16:59)
[2021-11-22] MEDS: CLONIDINE HCL 0.1 MG TAB PO PRN ×2 (18:45→23:57)
[2021-11-22] MEDS: ATORVASTATIN 40 MG TAB PO SCH (20:58)
[2021-11-22] MEDS: NIFEDIPINE CR 30 MG TAB PO SCH (20:58)
[2021-11-22] MEDS: POLYETHYLENE GLYCOL 3350 17 GM PACK PO SCH (20:58)
[2021-11-22] MEDS: FINASTERIDE 5 MG TAB PO SCH (20:58)
[2021-11-22] MEDS ORDERED: BISACODYL 5 MG TAB EC PO ONE (23:30)
[2021-11-23] VITALS (7 sets, daily range): BP systolic 108–189; BP diastolic 48–76
[2021-11-23] MEDS ORDERED: BISACODYL 5 MG TAB EC PO ONE ×3 (00:05→23:30)
[2021-11-23] MEDS: LEVOTHYROXINE SODIUM 75 MCG TAB PO SCH (04:41)
[2021-11-23] MEDS: HYDRALAZINE HCL 20 MG/ML VIAL IV PRN (05:31)
[2021-11-23] MEDS: PANTOPRAZOLE SOD 40 MG TABEC PO SCH ×2 (07:30→16:35)
[2021-11-23] MEDS: SEVELAMER CARBONATE 800 MG TAB PO SCH ×3 (08:00→16:35)
[2021-11-23] MEDS: DOCUSATE SODIUM 100 MG CAP PO SCH ×2 (09:08→16:35)
[2021-11-23] MEDS: CYANOCOBALAMIN INJ 1,000 MCG/ML VIAL IM SCH (09:08)
[2021-11-23] MEDS: IRON SUCROSE 100 MG in SODIUM CHLORIDE 0.9% 100 ML 100 ML IV SCH (09:08)
[2021-11-23] MEDS: CARVEDILOL 12.5 MG TAB PO SCH ×2 (09:09→21:10)
[2021-11-23] MEDS: FOLIC ACID 1 MG TAB PO SCH (09:09)
[2021-11-23] MEDS: ISOSORBIDE MONONITRATE 30 MG TAB CR PO SCH (09:10)
[2021-11-23] MEDS: CALCITRIOL 0.25 MCG CAP PO SCH (09:10)
[2021-11-23] MEDS ORDERED: HEPARIN SOD (PORCINE) 1000 UNIT/ML SDV ONE (11:04)
[2021-11-23 12:10] LABS: BASOPHILS # (AUTO) 0.1 (0.0-0.1); BASOPHILS % 0.5 % (0.0-1.0); EOSINOPHILS % 7.5 % (0.0-6.0); LYMPHOCYTES # (AUTO) 0.9 (1.0-3.2); LYMPHOCYTES % 6.5 % (18.0-39.1); MEAN CORPUSCULAR HGB CONC 31.9 g/dL (31-35); MEAN CORPUSCULAR VOLUME 97.1 fL (81-99); MONOCYTES # (AUTO) 1.1 (0.2-0.8); NEUTROPHILS # (AUTO) 9.9 (2.1-6.9); NEUTROPHILS % 75.2 % (38.7-80.0); PLATELET COUNT 307 x10e3/uL (140-360); RED CELL DISTRIBUTION WIDTH 14.8 % (11.7-14.4)
[2021-11-23 12:13] LABS: HEMATOCRIT 20.4 % (38.2-49.6); HEMOGLOBIN 6.5 g/dL (14.0-18.0)
[2021-11-23 12:24] LABS: ANION GAP 15.3 mmol/L (8-16); CALCIUM 7.5 mg/dL (8.4-10.2); CREATININE, SERUM 7.78 mg/dL (0.72-1.25); POTASSIUM 4.3 mmol/L (3.5-5.1)
[2021-11-23 12:26] LABS: CHOL/HDL RATIO 4.8 (3.9-4.7)
[2021-11-23] MEDS: Cefazolin 1 GM in SODIUM CHLORIDE 0.9% 50ML 50 ML IV SCH (17:34)
[2021-11-23] MEDS: FINASTERIDE 5 MG TAB PO SCH (21:10)
[2021-11-23] MEDS: ATORVASTATIN 40 MG TAB PO SCH (21:10)
[2021-11-23] MEDS: NIFEDIPINE CR 30 MG TAB PO SCH (21:10)
[2021-11-23] MEDS: POLYETHYLENE GLYCOL 3350 17 GM PACK PO SCH (21:10)
[2021-11-24] VITALS (9 sets, daily range): BP systolic 133–169; BP diastolic 54–70
[2021-11-24] MEDS ORDERED: BISACODYL 5 MG TAB EC PO ONE
[2021-11-24 05:00] LABS: BASOPHILS # (AUTO) 0.1 (0.0-0.1); BASOPHILS % 0.5 % (0.0-1.0); EOSINOPHILS # (AUTO) 1.2 (0.0-0.4); EOSINOPHILS % 9.5 % (0.0-6.0); LYMPHOCYTES # (AUTO) 0.9 (1.0-3.2); LYMPHOCYTES % 7.8 % (18.0-39.1); MEAN CORPUSCULAR HEMOGLOBIN 30.2 pg (28-32); MEAN CORPUSCULAR HGB CONC 31.3 g/dL (31-35); MEAN CORPUSCULAR VOLUME 96.6 fL (81-99); MONOCYTES # (AUTO) 1.2 (0.2-0.8); MONOCYTES % 9.9 % (4.4-11.3); NEUTROPHILS # (AUTO) 8.3 (2.1-6.9); NEUTROPHILS % 68.9 % (38.7-80.0); PLATELET COUNT 258 x10e3/uL (140-360); RED BLOOD COUNT 2.05 x10e6/uL (4.3-5.7); RED CELL DISTRIBUTION WIDTH 14.8 % (11.7-14.4)
[2021-11-24] MEDS ORDERED: BISACODYL 10 MG SUPP PR ONE (05:00)
[2021-11-24 05:07] LABS: HEMATOCRIT 19.8 % (38.2-49.6); HEMOGLOBIN 6.2 g/dL (14.0-18.0)
[2021-11-24 05:17] LABS: ANION GAP 14.9 mmol/L (8-16); CALCIUM 7.7 mg/dL (8.4-10.2); CREATININE, SERUM 6.31 mg/dL (0.72-1.25); POTASSIUM 3.9 mmol/L (3.5-5.1)
[2021-11-24] MEDS: LEVOTHYROXINE SODIUM 75 MCG TAB PO SCH (05:35)
[2021-11-24] MEDS ORDERED: HEPARIN SOD (PORCINE) 1000 UNIT/ML SDV IV PRN (07:15)
[2021-11-24] MEDS: PANTOPRAZOLE SOD 40 MG TABEC PO SCH ×2 (07:30→17:31)
[2021-11-24] MEDS: SEVELAMER CARBONATE 800 MG TAB PO SCH ×3 (08:00→17:33)
[2021-11-24] MEDS ORDERED: BENZOCAINE 20% SPR 60 ML CAN ONE (08:31)
[2021-11-24] MEDS ORDERED: SODIUM CHLORIDE 0.9% 1000ML 1,000 ML ONE (08:31)
[2021-11-24] MEDS: CARVEDILOL 12.5 MG TAB PO SCH ×2 (09:00→20:52)
[2021-11-24] MEDS: CALCITRIOL 0.25 MCG CAP PO SCH (09:00)
[2021-11-24] MEDS: ISOSORBIDE MONONITRATE 30 MG TAB CR PO SCH (09:00)
[2021-11-24] MEDS: FOLIC ACID 1 MG TAB PO SCH (09:00)
[2021-11-24] MEDS: DOCUSATE SODIUM 100 MG CAP PO SCH ×2 (09:00→17:33)
[2021-11-24] MEDS ORDERED: BENZOCAINE/TETRACAINE/BUTAMBEN AERO SPRAY 56 GM CAN ONE (10:55)
[2021-11-24] MEDS ORDERED: LIDOCAINE HCL 2% LOCAL INJ 5 ML SDV VIAL INJ ONE (13:15)
[2021-11-24] MEDS ORDERED: POVIDONE IODINE 0.05% 0.05 % ML PO ONE (13:15)
[2021-11-24] MEDS ORDERED: PROPOFOL IV EMULSION 10 MG/ML 20 ML VIAL ONE (13:15)
[2021-11-24] MEDS: Cefazolin 1 GM in SODIUM CHLORIDE 0.9% 50ML 50 ML IV SCH (17:22)
[2021-11-24] MEDS: EPOETIN ALFA-EPBX 10,000 UNIT/ML VIAL SC SCH (17:24)
[2021-11-24] MEDS: CYANOCOBALAMIN INJ 1,000 MCG/ML VIAL IM SCH (17:33)
[2021-11-24] MEDS: IRON SUCROSE 100 MG in SODIUM CHLORIDE 0.9% 100 ML 100 ML IV SCH (18:56)
[2021-11-24] MEDS: ATORVASTATIN 40 MG TAB PO SCH (20:51)
[2021-11-24] MEDS: FINASTERIDE 5 MG TAB PO SCH (20:52)
[2021-11-24] MEDS: NIFEDIPINE CR 30 MG TAB PO SCH (20:52)
[2021-11-24] MEDS: POLYETHYLENE GLYCOL 3350 17 GM PACK PO SCH (20:52)
[2021-11-25] VITALS (8 sets, daily range): BP systolic 121–167; BP diastolic 52–74
[2021-11-25] MEDS: LEVOTHYROXINE SODIUM 75 MCG TAB PO SCH (05:05)
[2021-11-25] MEDS: SEVELAMER CARBONATE 800 MG TAB PO SCH ×3 (08:00→16:54)
[2021-11-25 08:12] LABS: BASOPHILS # (AUTO) 0.1 (0.0-0.1); BASOPHILS % 0.8 % (0.0-1.0); EOSINOPHILS # (AUTO) 1.1 (0.0-0.4); EOSINOPHILS % 9.8 % (0.0-6.0); HEMATOCRIT 22.5 % (38.2-49.6); LYMPHOCYTES # (AUTO) 0.9 (1.0-3.2); LYMPHOCYTES % 7.9 % (18.0-39.1); MEAN CORPUSCULAR HEMOGLOBIN 30.6 pg (28-32); MEAN CORPUSCULAR HGB CONC 31.1 g/dL (31-35); MEAN CORPUSCULAR VOLUME 98.3 fL (81-99); MONOCYTES % 8.4 % (4.4-11.3); NEUTROPHILS # (AUTO) 8.2 (2.1-6.9); NEUTROPHILS % 70.4 % (38.7-80.0); PLATELET COUNT 256 x10e3/uL (140-360); RED BLOOD COUNT 2.29 x10e6/uL (4.3-5.7)
[2021-11-25 08:24] LABS: ALBUMIN 2.5 g/dL (3.5-5.0); ALBUMIN/GLOBULIN RATIO 0.6 (0.8-2.0); ANION GAP 13.1 mmol/L (8-16); CALCIUM 8.2 mg/dL (8.4-10.2); CREATININE, SERUM 5.88 mg/dL (0.72-1.25); POTASSIUM 4.1 mmol/L (3.5-5.1)
[2021-11-25] MEDS: CALCITRIOL 0.25 MCG CAP PO SCH (12:00)
[2021-11-25] MEDS: CYANOCOBALAMIN INJ 1,000 MCG/ML VIAL IM SCH (12:00)
[2021-11-25] MEDS: ISOSORBIDE MONONITRATE 30 MG TAB CR PO SCH (12:00)
[2021-11-25] MEDS: DOCUSATE SODIUM 100 MG CAP PO SCH ×2 (12:00→16:53)
[2021-11-25] MEDS: PANTOPRAZOLE SOD 40 MG TABEC PO SCH ×2 (12:00→16:53)
[2021-11-25] MEDS: IRON SUCROSE 100 MG in SODIUM CHLORIDE 0.9% 100 ML 100 ML IV SCH (12:00)
[2021-11-25] MEDS: FOLIC ACID 1 MG TAB PO SCH (12:00)
[2021-11-25] MEDS: CARVEDILOL 12.5 MG TAB PO SCH ×2 (12:00→20:50)
[2021-11-25] MEDS: HYDRALAZINE HCL 20 MG/ML VIAL IV PRN (16:54)
[2021-11-25] MEDS: Cefazolin 1 GM in SODIUM CHLORIDE 0.9% 50ML 50 ML IV SCH (16:54)
[2021-11-25] MEDS: POLYETHYLENE GLYCOL 3350 17 GM PACK PO SCH (19:05)
[2021-11-25] MEDS: ATORVASTATIN 40 MG TAB PO SCH (20:50)
[2021-11-25] MEDS: FINASTERIDE 5 MG TAB PO SCH (20:50)
[2021-11-25] MEDS: NIFEDIPINE CR 30 MG TAB PO SCH (20:50)
[2021-11-26] VITALS (8 sets, daily range): BP systolic 128–212; BP diastolic 57–97
[2021-11-26] MEDS: LEVOTHYROXINE SODIUM 75 MCG TAB PO SCH (05:08)
[2021-11-26] MEDS: HYDRALAZINE HCL 20 MG/ML VIAL IV PRN (06:34)
[2021-11-26] MEDS: PANTOPRAZOLE SOD 40 MG TABEC PO SCH ×2 (07:30→16:38)
[2021-11-26] MEDS: SEVELAMER CARBONATE 800 MG TAB PO SCH ×3 (08:00→16:38)
[2021-11-26] MEDS: DOCUSATE SODIUM 100 MG CAP PO SCH ×2 (09:35→16:38)
[2021-11-26] MEDS: FOLIC ACID 1 MG TAB PO SCH (09:35)
[2021-11-26] MEDS: CALCITRIOL 0.25 MCG CAP PO SCH (09:35)
[2021-11-26] MEDS: CARVEDILOL 12.5 MG TAB PO SCH ×2 (09:35→20:46)
[2021-11-26] MEDS: CYANOCOBALAMIN INJ 1,000 MCG/ML VIAL IM SCH (09:35)
[2021-11-26] MEDS: ISOSORBIDE MONONITRATE 30 MG TAB CR PO SCH (09:35)
[2021-11-26] MEDS: IRON SUCROSE 100 MG in SODIUM CHLORIDE 0.9% 100 ML 100 ML IV SCH (09:47)
[2021-11-26] MEDS: Cefazolin 1 GM in SODIUM CHLORIDE 0.9% 50ML 50 ML IV SCH (17:23)
[2021-11-26] MEDS: POLYETHYLENE GLYCOL 3350 17 GM PACK PO SCH (19:16)
[2021-11-26] MEDS: ATORVASTATIN 40 MG TAB PO SCH (20:44)
[2021-11-26] MEDS: NIFEDIPINE CR 30 MG TAB PO SCH (20:46)
[2021-11-26] MEDS: FINASTERIDE 5 MG TAB PO SCH (20:46)
[2021-11-27] MEDS: HYDRALAZINE HCL 20 MG/ML VIAL IV PRN (00:30)
[2021-11-27 00:36] VITALS: BP 201/77
[2021-11-27 03:42] VITALS: BP 157/54
[2021-11-27] MEDS: LEVOTHYROXINE SODIUM 75 MCG TAB PO SCH (05:10)
[2021-11-27] MEDS: PANTOPRAZOLE SOD 40 MG TABEC PO SCH (07:30)
[2021-11-27] MEDS: SEVELAMER CARBONATE 800 MG TAB PO SCH ×2 (07:34→12:15)
[2021-11-27] MEDS: CYANOCOBALAMIN INJ 1,000 MCG/ML VIAL IM SCH (07:34)
[2021-11-27] MEDS: ISOSORBIDE MONONITRATE 30 MG TAB CR PO SCH (07:35)
[2021-11-27] MEDS: CARVEDILOL 12.5 MG TAB PO SCH (07:35)
[2021-11-27] MEDS: CALCITRIOL 0.25 MCG CAP PO SCH (07:35)
[2021-11-27] MEDS: FOLIC ACID 1 MG TAB PO SCH (07:35)
[2021-11-27] MEDS: DOCUSATE SODIUM 100 MG CAP PO SCH (07:35)
[2021-11-27 07:58] VITALS: BP 157/54
[2021-11-27 08:03] VITALS: BP 145/52
[2021-11-27] MEDS: IRON SUCROSE 100 MG in SODIUM CHLORIDE 0.9% 100 ML 100 ML IV SCH (09:31)
[2021-11-27] MEDS ORDERED: MIDAZOLAM HCL 2 MG/2 ML VIAL ONE (10:35)
[2021-11-27] MEDS ORDERED: FENTANYL CITRATE/PF 100MCG/2 ML INJ ONE (10:36)
[2021-11-27] MEDS ORDERED: SODIUM CHLORIDE 0.9% 250ML 250 ML ONE ×2 (10:36→10:55)
[2021-11-27] MEDS ORDERED: HEPARIN SOD (PORCINE) 1000 UNIT/ML SDV ONE (10:44)
[2021-11-27] MEDS ORDERED: LIDOCAINE HCL 1% LOCAL INJ 20 ML VIAL ONE (10:55)
[2021-11-27] MEDS ORDERED: Atorvastatin PO (11:35)
[2021-11-27] MEDS ORDERED: NIFEDIPINE ER30 M1 PO (11:35)
[2021-11-27] MEDS ORDERED: SYNTHROID75 MCG PO (11:35)
[2021-11-27] MEDS ORDERED: FINASTERIDE5 MG PO (11:35)
[2021-11-27] MEDS ORDERED: Isosorbide Mononitrate PO (11:35)
[2021-11-27] MEDS ORDERED: ROCALTROL0.25 MCG PO (11:35)
[2021-11-27] MEDS ORDERED: COREG12.5 MG PO (11:35)
[2021-11-27] MEDS ORDERED: RENVELA800 MG PO (11:35)
== END 2021-11-27 14:31 | disposition home or self-care (01) | DRG 673 ==
LOC: ER 10:14 → ERHOLD 12:19 → IMCU 11-09 06:19 → MED/SURG 11-13 19:56
PROVIDERS: ADMIT Internal Medicine; ATTEND Internal Medicine
PROC: 0DB68ZX Excision of Stomach, Via Natural or Artificial Opening Endoscopic, Diagnostic (ICD-10-PCS; 2021-11-09)
PROC: 0DB78ZX Excision of Stomach, Pylorus, Via Natural or Artificial Opening Endoscopic, Diagnostic (ICD-10-PCS; 2021-11-09)
PROC: 0JH63XZ Insertion of Tunneled Vascular Access Device into Chest Subcutaneous Tissue and Fascia, Percutaneous Approach (ICD-10-PCS; 2021-11-10)
PROC: 02HV33Z Insertion of Infusion Device into Superior Vena Cava, Percutaneous Approach (ICD-10-PCS; 2021-11-10)
PROC: 3E04329 Introduction of Other Anti-infective into Central Vein, Percutaneous Approach (ICD-10-PCS; 2021-11-10)
PROC: 0DBK8ZX Excision of Ascending Colon, Via Natural or Artificial Opening Endoscopic, Diagnostic (ICD-10-PCS; 2021-11-13)
PROC: 0DBL8ZX Excision of Transverse Colon, Via Natural or Artificial Opening Endoscopic, Diagnostic (ICD-10-PCS; 2021-11-13)
PROC: 0DBN8ZX Excision of Sigmoid Colon, Via Natural or Artificial Opening Endoscopic, Diagnostic (ICD-10-PCS; 2021-11-13)
PROC: 5A1D70Z Performance of Urinary Filtration, Intermittent, Less than 6 Hours Per Day (ICD-10-PCS; principal; 2021-11-13 12:30)
PROC: 0DBK8ZZ Excision of Ascending Colon, Via Natural or Artificial Opening Endoscopic (ICD-10-PCS; 2021-11-14)
PROC: 02PYX3Z Removal of Infusion Device from Great Vessel, External Approach (ICD-10-PCS; 2021-11-20)
PROC: 0WHG33Z Insertion of Infusion Device into Peritoneal Cavity, Percutaneous Approach (ICD-10-PCS; 2021-11-21)
PROC: 02HV33Z Insertion of Infusion Device into Superior Vena Cava, Percutaneous Approach (ICD-10-PCS; 2021-11-23)
PROC: B24BZZ4 Ultrasonography of Heart with Aorta, Transesophageal (ICD-10-PCS; 2021-11-26)
PROC: 0JH63XZ Insertion of Tunneled Vascular Access Device into Chest Subcutaneous Tissue and Fascia, Percutaneous Approach (ICD-10-PCS; 2021-11-27)
PROC: 02HV33Z Insertion of Infusion Device into Superior Vena Cava, Percutaneous Approach (ICD-10-PCS; 2021-11-27)
DX: N17.9 Acute kidney failure, unspecified (principal); A41.02 Sepsis due to Methicillin resistant Staphylococcus aureus; G93.41 Metabolic encephalopathy; I50.33 Acute on chronic diastolic (congestive) heart failure; K29.71 Gastritis, unspecified, with bleeding; I13.2 Hypertensive heart and chronic kidney disease with heart failure and with stage 5 chronic kidney disease, or end stage renal disease; N18.6 End stage renal disease; N25.81 Secondary hyperparathyroidism of renal origin; E11.22 Type 2 diabetes mellitus with diabetic chronic kidney disease; Z99.2 Dependence on renal dialysis; Z79.899 Other long term (current) drug therapy; E87.5 Hyperkalemia; D50.9 Iron deficiency anemia, unspecified; E78.5 Hyperlipidemia, unspecified; D63.1 Anemia in chronic kidney disease; N40.0 Benign prostatic hyperplasia without lower urinary tract symptoms; I25.10 Atherosclerotic heart disease of native coronary artery without angina pectoris; E03.9 Hypothyroidism, unspecified; E87.6 Hypokalemia; K63.5 Polyp of colon; K59.00 Constipation, unspecified; E83.39 Other disorders of phosphorus metabolism; E83.51 Hypocalcemia; K64.8 Other hemorrhoids; K57.90 Diverticulosis of intestine, part unspecified, without perforation or abscess without bleeding; K31.7 Polyp of stomach and duodenum; K29.70 Gastritis, unspecified, without bleeding; Z20.822 Contact with and (suspected) exposure to COVID-19; E66.9 Obesity, unspecified; Z68.31 Body mass index [BMI] 31.0-31.9, adult; Z79.4 Long term (current) use of insulin
CPT/HCPCS: 36415; 36556; 36558; 36589; 43239; 45378; 45380; 45385; 70450; 71045; 71046; 74176; 74470; 76770; 76937; 77001; 78278; 80048; 80053; 80061; 81001; 82550; 82553; 82607; 82746; 82948; 83540; 83880; 83970; 84100; 84165; 84166; 84443; 84466; 84484; 84550; 85007; 85014; 85018; 85025; 85027; 85610; 85730; 86021; 86039; 86160; 86705; 86706; 86850; 86900; 86920; 87040; 87070; 87071; 87186; 87205; 87340; 88305; 88312; 90962; 93005; 93306; 93312; 93320; 93325; 94799; 99152; 99153; 99285; A9512; C1752; C1769; C1892; J0330; J0360; J0690; J0696; J1100; J1610; J1644; J1756; J1885; J1940; J1980; J2001; J2250; J2405; J2765; J3010; J3370; J3420; J7030; J7040; J7050; Q0162; U0002

== ENCOUNTER 2022-04-16 17:11 | Inpatient (IN) | payer MEDICARE ==
[~2022-04-16] VITALS: Ht 165.1 cm; Wt 85.7 kg
[~2022-04-16 17:11] MED LIST: Atorvastatin PO; COREG12.5 MG PO; FINASTERIDE5 MG PO; Isosorbide Mononitrate PO; NIFEDIPINE ER30 M1 PO; RENVELA800 MG PO; ROCALTROL0.25 MCG PO; SYNTHROID75 MCG PO
[2022-04-16 18:00] LABS: BASOPHILS # (AUTO) 0.1 (0.0-0.1); BASOPHILS % 0.4 % (0.0-1.0); EOSINOPHILS # (AUTO) 0.3 (0.0-0.4); EOSINOPHILS % 2.1 % (0.0-6.0); HEMATOCRIT 35.5 % (38.2-49.6); HEMOGLOBIN 11.1 g/dL (14.0-18.0); LYMPHOCYTES # (AUTO) 1.3 (1.0-3.2); LYMPHOCYTES % 8.9 % (18.0-39.1); MEAN CORPUSCULAR HGB CONC 31.3 g/dL (31-35); MEAN CORPUSCULAR VOLUME 89.6 fL (81-99); MONOCYTES # (AUTO) 1.1 (0.2-0.8); MONOCYTES % 7.6 % (4.4-11.3); NEUTROPHILS # (AUTO) 11.3 (2.1-6.9); NEUTROPHILS % 79.9 % (38.7-80.0); PLATELET COUNT 295 x10e3/uL (140-360); RED BLOOD COUNT 3.96 x10e6/uL (4.3-5.7); RED CELL DISTRIBUTION WIDTH 18.6 % (11.7-14.4)
[2022-04-16] MEDS ORDERED: Vancomycin IV 1 GM in SODIUM CHLORIDE 0.9% 250ML 250 ML IV ONE (18:00)
[2022-04-16 18:17] LABS: ALANINE AMINOTRANSFERASE 13 IU/L (0-55); ALBUMIN 2.8 g/dL (3.5-5.0); ALBUMIN/GLOBULIN RATIO 0.5 (0.8-2.0); ALKALINE PHOSPHATASE 77 IU/L (40-150); ANION GAP 24.1 mmol/L (8-16); BLOOD UREA NITROGEN 88 mg/dL (7-26); BUN/CREATININE RATIO 7 (6-25); CALCIUM 8.2 mg/dL (8.4-10.2); CARBON DIOXIDE 26 mmol/L (22-29); CHLORIDE 92 mmol/L (98-107); CREATININE, SERUM 12.83 mg/dL (0.72-1.25); GLUCOSE 105 mg/dL (74-118); POTASSIUM 5.1 mmol/L (3.5-5.1); SODIUM 137 mmol/L (136-145)
[2022-04-16] MEDS ORDERED: Morphine 4mg INJECTION 4 MG/ML INJ IV ONE (19:00)
[2022-04-16] MEDS ORDERED: ONDANSETRON HCL INJ 2MG/ML 2ML 2 MG/ML VIAL IV STA (19:00)
[2022-04-16] MEDS ORDERED: ONDANSETRON HCL INJ 2MG/ML 2ML 2 MG/ML VIAL IV PRN (19:15)
[2022-04-16] MEDS ORDERED: Morphine 4mg INJECTION 4 MG/ML INJ IV PRN (19:15)
[2022-04-16] MEDS ORDERED: SODIUM CHLORIDE 0.9% 1000ML 1,000 ML IV SCH (19:15)
[2022-04-16] MEDS ORDERED: DIPHENHYDRAMINE HCL INJ 50 MG/ML VIAL ONE (20:36)
[2022-04-16] MEDS ORDERED: DIPHENHYDRAMINE HCL INJ 50 MG/ML VIAL IV ONE (20:45)
[2022-04-16 21:18] VITALS: BP 131/69
[2022-04-16 21:30] VITALS: BP 131/69
[2022-04-17] VITALS (8 sets, daily range): BP systolic 127–151; BP diastolic 50–74
[2022-04-17] MEDS ORDERED: BUMETANIDE1 MG PO (02:15)
[2022-04-17] MEDS ORDERED: ATORVASTATIN CA40 MG PO (02:15)
[2022-04-17] MEDS ORDERED: ISOSORBIDE MONO30 MG PO (02:19)
[2022-04-17] MEDS ORDERED: HYDRALAZINE HCL50 MG PO (02:19)
[2022-04-17] MEDS ORDERED: ASPIRIN EC81 MG PO (02:19)
[2022-04-17] MEDS ORDERED: CARVEDILOL12.5 MG PO (02:19)
[2022-04-17 05:01] LABS: BASOPHILS # (AUTO) 0.1 (0.0-0.1); BASOPHILS % 0.4 % (0.0-1.0); EOSINOPHILS # (AUTO) 0.4 (0.0-0.4); EOSINOPHILS % 2.9 % (0.0-6.0); HEMATOCRIT 30.8 % (38.2-49.6); HEMOGLOBIN 9.7 g/dL (14.0-18.0); LYMPHOCYTES # (AUTO) 1.1 (1.0-3.2); LYMPHOCYTES % 7.9 % (18.0-39.1); MEAN CORPUSCULAR HEMOGLOBIN 27.7 pg (28-32); MEAN CORPUSCULAR HGB CONC 31.5 g/dL (31-35); MONOCYTES # (AUTO) 1.1 (0.2-0.8); MONOCYTES % 7.9 % (4.4-11.3); NEUTROPHILS # (AUTO) 10.6 (2.1-6.9); NEUTROPHILS % 79.5 % (38.7-80.0); PLATELET COUNT 237 x10e3/uL (140-360); RED CELL DISTRIBUTION WIDTH 18.8 % (11.7-14.4)
[2022-04-17 05:17] LABS: ALBUMIN 2.4 g/dL (3.5-5.0); ALBUMIN/GLOBULIN RATIO 0.5 (0.8-2.0); CALCIUM 7.4 mg/dL (8.4-10.2); CREATININE, SERUM 13.61 mg/dL (0.72-1.25)
[2022-04-17] MEDS: HYDRALAZINE HCL 25 MG TAB PO SCH (20:52)
[2022-04-17] MEDS: ATORVASTATIN 40 MG TAB PO SCH (20:53)
[2022-04-18] VITALS (8 sets, daily range): BP systolic 127–148; BP diastolic 63–72
[2022-04-18 05:38] LABS: BASOPHILS # (AUTO) 0.1 (0.0-0.1); BASOPHILS % 0.5 % (0.0-1.0); EOSINOPHILS # (AUTO) 0.6 (0.0-0.4); EOSINOPHILS % 5.1 % (0.0-6.0); HEMOGLOBIN 9.9 g/dL (14.0-18.0); LYMPHOCYTES % 8.8 % (18.0-39.1); MEAN CORPUSCULAR HGB CONC 31.9 g/dL (31-35); MEAN CORPUSCULAR VOLUME 87.8 fL (81-99); NEUTROPHILS # (AUTO) 8.2 (2.1-6.9); NEUTROPHILS % 75.5 % (38.7-80.0); PLATELET COUNT 240 x10e3/uL (140-360); RED BLOOD COUNT 3.53 x10e6/uL (4.3-5.7); RED CELL DISTRIBUTION WIDTH 18.9 % (11.7-14.4)
[2022-04-18 06:04] LABS: ANION GAP 25.6 mmol/L (8-16); CALCIUM 7.2 mg/dL (8.4-10.2); CREATININE, SERUM 13.95 mg/dL (0.72-1.25); POTASSIUM 4.6 mmol/L (3.5-5.1)
[2022-04-18 06:29] LABS: % IRON SATURATION 58 % (15-50); IRON 81 ug/dL (65-175); TOTAL IRON BINDING CAPACITY 140 ug/dL (261-478); TRANSFERRIN 100 mg/dL (174-364)
[2022-04-18] MEDS: HYDRALAZINE HCL 25 MG TAB PO SCH ×3 (08:32→20:37)
[2022-04-18] MEDS: ASPIRIN 81 MG ENTERIC COATED PO SCH (08:32)
[2022-04-18] MEDS: BUMETANIDE 1 MG TAB PO SCH (08:33)
[2022-04-18] MEDS: ISOSORBIDE MONONITRATE 30 MG TAB CR PO SCH (08:33)
[2022-04-18] MEDS: CARVEDILOL 12.5 MG TAB PO SCH ×2 (08:34→17:32)
[2022-04-18] MEDS ORDERED: ONDANSETRON HCL 4 MG ORAL DISINTEGRATING TAB PO PRN (11:45)
[2022-04-18] MEDS ORDERED: POVIDONE IODINE 10% 120 ML BTL EXT PRN (19:15)
[2022-04-18] MEDS: PREDNISONE 20 MG TAB PO SCH (20:36)
[2022-04-18] MEDS: ATORVASTATIN 40 MG TAB PO SCH (20:37)
[2022-04-19] VITALS (12 sets, daily range): BP systolic 129–150; BP diastolic 62–76
[2022-04-19 05:58] LABS: BASOPHILS % 0.3 % (0.0-1.0); EOSINOPHILS % 0.2 % (0.0-6.0); HEMATOCRIT 30.5 % (38.2-49.6); HEMOGLOBIN 9.6 g/dL (14.0-18.0); LYMPHOCYTES # (AUTO) 0.6 (1.0-3.2); LYMPHOCYTES % 4.9 % (18.0-39.1); MEAN CORPUSCULAR HEMOGLOBIN 28.1 pg (28-32); MEAN CORPUSCULAR HGB CONC 31.5 g/dL (31-35); MEAN CORPUSCULAR VOLUME 89.2 fL (81-99); MONOCYTES # (AUTO) 0.2 (0.2-0.8); MONOCYTES % 1.8 % (4.4-11.3); NEUTROPHILS # (AUTO) 11.8 (2.1-6.9); NEUTROPHILS % 91.5 % (38.7-80.0); PLATELET COUNT 260 x10e3/uL (140-360); RED BLOOD COUNT 3.42 x10e6/uL (4.3-5.7); RED CELL DISTRIBUTION WIDTH 18.4 % (11.7-14.4)
[2022-04-19 06:19] LABS: ANION GAP 21.2 mmol/L (8-16); CALCIUM 7.4 mg/dL (8.4-10.2); CREATININE, SERUM 13.57 mg/dL (0.72-1.25); POTASSIUM 5.2 mmol/L (3.5-5.1)
[2022-04-19] MEDS: PREDNISONE 20 MG TAB PO SCH (08:39)
[2022-04-19] MEDS: BUMETANIDE 1 MG TAB PO SCH (08:40)
[2022-04-19] MEDS: ASPIRIN 81 MG ENTERIC COATED PO SCH (08:40)
[2022-04-19] MEDS: CARVEDILOL 12.5 MG TAB PO SCH ×2 (08:40→18:34)
[2022-04-19] MEDS: HYDRALAZINE HCL 25 MG TAB PO SCH ×3 (08:40→21:32)
[2022-04-19] MEDS: ISOSORBIDE MONONITRATE 30 MG TAB CR PO SCH (08:41)
[2022-04-19] MEDS ORDERED: HEPARIN SOD/SOD CHLORIDE 2,000 ML ONE (15:22)
[2022-04-19] MEDS ORDERED: LIDOCAINE HCL 1% LOCAL INJ 20 ML VIAL ONE (15:22)
[2022-04-19] MEDS ORDERED: NITROGLYCERIN/D5W 200 MCG/ML 250 ML ONE (15:22)
[2022-04-19] MEDS ORDERED: HEPARIN SOD (PORCINE) 1000 UNIT/ML 30ML ONE (15:22)
[2022-04-19] MEDS ORDERED: SODIUM CHLORIDE 0.9% 1000ML 1,000 ML ONE ×2 (15:22→15:59)
[2022-04-19] MEDS ORDERED: MIDAZOLAM HCL 2 MG/2 ML VIAL ONE ×2 (15:23→15:59)
[2022-04-19] MEDS ORDERED: IOPAMIDOL 300MG/ML 100 ML INFUS..BTL IV ONE (15:23)
[2022-04-19] MEDS ORDERED: FENTANYL CITRATE/PF 100MCG/2 ML INJ ONE (15:23)
[2022-04-19] MEDS ORDERED: DIPHENHYDRAMINE HCL INJ 50 MG/ML VIAL ONE (15:43)
[2022-04-19] MEDS ORDERED: METHYLPREDNISOLONE SOD SUCC 125 MG/2ML VIAL ONE (15:43)
[2022-04-19] MEDS ORDERED: VERAPAMIL HCL 2.5 MG/ML 2 ML VIAL ONE ×2 (15:59)
[2022-04-19] MEDS ORDERED: SOD POLYSTYRENE SULFONATE SUSP 15 GM/60 ML BTL PO ONE (16:00)
[2022-04-19] MEDS ORDERED: LACTULOSE SYRUP 20 GM/30 ML UDC PO ONE (16:00)
[2022-04-19] MEDS ORDERED: CLOPIDOGREL BISULFATE 75 MG TAB PO ONE (18:00)
[2022-04-19] MEDS: ATORVASTATIN 40 MG TAB PO SCH (21:32)
[2022-04-20] VITALS (8 sets, daily range): BP systolic 130–184; BP diastolic 60–90
[2022-04-20 05:02] LABS: BASOPHILS % 0.2 % (0.0-1.0); HEMOGLOBIN 8.5 g/dL (14.0-18.0); LYMPHOCYTES # (AUTO) 0.5 (1.0-3.2); LYMPHOCYTES % 2.5 % (18.0-39.1); MEAN CORPUSCULAR HEMOGLOBIN 27.7 pg (28-32); MEAN CORPUSCULAR HGB CONC 31.5 g/dL (31-35); MEAN CORPUSCULAR VOLUME 87.9 fL (81-99); MONOCYTES # (AUTO) 0.9 (0.2-0.8); MONOCYTES % 4.9 % (4.4-11.3); NEUTROPHILS # (AUTO) 16.7 (2.1-6.9); NEUTROPHILS % 91.4 % (38.7-80.0); PLATELET COUNT 257 x10e3/uL (140-360); RED BLOOD COUNT 3.07 x10e6/uL (4.3-5.7); RED CELL DISTRIBUTION WIDTH 18.6 % (11.7-14.4)
[2022-04-20 05:18] LABS: ALBUMIN 2.3 g/dL (3.5-5.0); ALBUMIN/GLOBULIN RATIO 0.5 (0.8-2.0); ANION GAP 26.2 mmol/L (8-16); CALCIUM 7.2 mg/dL (8.4-10.2); POTASSIUM 4.2 mmol/L (3.5-5.1)
[2022-04-20] MEDS ORDERED: HYDRALAZINE HCL 20 MG/ML VIAL IV PRN (08:30)
[2022-04-20] MEDS: ASPIRIN 81 MG ENTERIC COATED PO SCH ×2 (08:53→12:26)
[2022-04-20] MEDS: CLOPIDOGREL BISULFATE 75 MG TAB PO SCH ×2 (08:54→12:26)
[2022-04-20] MEDS ORDERED: CLOPIDOGREL BISULFATE 75 MG TAB PO SCH (09:00)
[2022-04-20] MEDS: CARVEDILOL 12.5 MG TAB PO SCH ×2 (09:03→17:50)
[2022-04-20] MEDS: BUMETANIDE 1 MG TAB PO SCH (09:04)
[2022-04-20] MEDS: ISOSORBIDE MONONITRATE 30 MG TAB CR PO SCH (09:04)
[2022-04-20] MEDS: HYDRALAZINE HCL 25 MG TAB PO SCH ×3 (09:04→21:14)
[2022-04-20] MEDS ORDERED: EPOETIN ALFA-EPBX 10,000 UNIT/ML VIAL SC ONE (14:30)
[2022-04-20] MEDS: ATORVASTATIN 40 MG TAB PO SCH (21:13)
[2022-04-21] VITALS (7 sets, daily range): BP systolic 112–152; BP diastolic 54–76
[2022-04-21 06:37] LABS: BASOPHILS # (AUTO) 0.1 (0.0-0.1); BASOPHILS % 0.4 % (0.0-1.0); EOSINOPHILS # (AUTO) 0.1 (0.0-0.4); EOSINOPHILS % 0.9 % (0.0-6.0); HEMATOCRIT 26.6 % (38.2-49.6); HEMOGLOBIN 8.2 g/dL (14.0-18.0); LYMPHOCYTES # (AUTO) 1.1 (1.0-3.2); MEAN CORPUSCULAR HEMOGLOBIN 27.3 pg (28-32); MEAN CORPUSCULAR HGB CONC 30.8 g/dL (31-35); MEAN CORPUSCULAR VOLUME 88.7 fL (81-99); MONOCYTES # (AUTO) 1.1 (0.2-0.8); MONOCYTES % 6.7 % (4.4-11.3); NEUTROPHILS # (AUTO) 12.7 (2.1-6.9); NEUTROPHILS % 80.4 % (38.7-80.0); PLATELET COUNT 274 x10e3/uL (140-360); RED CELL DISTRIBUTION WIDTH 18.8 % (11.7-14.4)
[2022-04-21 06:56] LABS: ANION GAP 24.5 mmol/L (8-16); CREATININE, SERUM 12.24 mg/dL (0.72-1.25); POTASSIUM 3.5 mmol/L (3.5-5.1)
[2022-04-21 06:58] LABS: CALCIUM 6.9 mg/dL (8.4-10.2)
[2022-04-21] MEDS: ISOSORBIDE MONONITRATE 30 MG TAB CR PO SCH (08:58)
[2022-04-21] MEDS: CARVEDILOL 12.5 MG TAB PO SCH ×2 (08:58→17:21)
[2022-04-21] MEDS: CLOPIDOGREL BISULFATE 75 MG TAB PO SCH (08:59)
[2022-04-21] MEDS: ASPIRIN 81 MG ENTERIC COATED PO SCH (08:59)
[2022-04-21] MEDS: BUMETANIDE 1 MG TAB PO SCH (08:59)
[2022-04-21] MEDS: HYDRALAZINE HCL 25 MG TAB PO SCH ×3 (09:00→21:00)
[2022-04-21] MEDS ORDERED: POTASSIUM CHLORIDE 20 MEQ TAB CR PO ONE (14:15)
[2022-04-21] MEDS: ATORVASTATIN 40 MG TAB PO SCH (21:06)
[2022-04-21] MEDS ORDERED: PIPERACILLIN/TAZOBACTAM SOD 2.25 GM VIAL ONE (23:57)
[2022-04-22] VITALS (8 sets, daily range): BP systolic 113–174; BP diastolic 45–81
[2022-04-22] MEDS: CLOPIDOGREL BISULFATE 75 MG TAB PO SCH (08:47)
[2022-04-22] MEDS: ASPIRIN 81 MG ENTERIC COATED PO SCH (08:47)
[2022-04-22] MEDS: HYDRALAZINE HCL 25 MG TAB PO SCH ×3 (08:47→22:24)
[2022-04-22] MEDS: BUMETANIDE 1 MG TAB PO SCH (08:48)
[2022-04-22] MEDS: CARVEDILOL 12.5 MG TAB PO SCH ×2 (08:48→17:13)
[2022-04-22] MEDS: ISOSORBIDE MONONITRATE 30 MG TAB CR PO SCH (08:49)
[2022-04-22] MEDS: ATORVASTATIN 40 MG TAB PO SCH (22:23)
[2022-04-23] VITALS (8 sets, daily range): BP systolic 137–173; BP diastolic 58–79
[2022-04-23 06:34] LABS: BASOPHILS # (AUTO) 0.1 (0.0-0.1); BASOPHILS % 0.4 % (0.0-1.0); EOSINOPHILS # (AUTO) 0.7 (0.0-0.4); EOSINOPHILS % 3.9 % (0.0-6.0); HEMATOCRIT 26.1 % (38.2-49.6); HEMOGLOBIN 8.1 g/dL (14.0-18.0); LYMPHOCYTES # (AUTO) 1.1 (1.0-3.2); LYMPHOCYTES % 6.7 % (18.0-39.1); MEAN CORPUSCULAR HEMOGLOBIN 28.1 pg (28-32); MEAN CORPUSCULAR VOLUME 90.6 fL (81-99); MONOCYTES # (AUTO) 1.1 (0.2-0.8); MONOCYTES % 6.3 % (4.4-11.3); NEUTROPHILS # (AUTO) 13.1 (2.1-6.9); NEUTROPHILS % 78.6 % (38.7-80.0); PLATELET COUNT 292 x10e3/uL (140-360); RED BLOOD COUNT 2.88 x10e6/uL (4.3-5.7); RED CELL DISTRIBUTION WIDTH 19.9 % (11.7-14.4)
[2022-04-23 06:45] LABS: ANION GAP 24.2 mmol/L (8-16); CREATININE, SERUM 13.91 mg/dL (0.72-1.25); POTASSIUM 4.2 mmol/L (3.5-5.1)
[2022-04-23 07:04] LABS: CALCIUM 6.5 mg/dL (8.4-10.2)
[2022-04-23] MEDS ORDERED: NEOMYCIN/POLYMYX/BACITR OINT 0.9 GM PKT ONE (08:37)
[2022-04-23] MEDS: ASPIRIN 81 MG ENTERIC COATED PO SCH (10:05)
[2022-04-23] MEDS: CLOPIDOGREL BISULFATE 75 MG TAB PO SCH (10:05)
[2022-04-23] MEDS: HYDRALAZINE HCL 25 MG TAB PO SCH ×3 (10:06→22:11)
[2022-04-23] MEDS: CARVEDILOL 12.5 MG TAB PO SCH ×2 (10:06→16:18)
[2022-04-23] MEDS: ISOSORBIDE MONONITRATE 30 MG TAB CR PO SCH (10:06)
[2022-04-23] MEDS: BUMETANIDE 1 MG TAB PO SCH (10:07)
[2022-04-23] MEDS ORDERED: FENTANYL CITRATE/PF 100MCG/2 ML INJ ONE (13:46)
[2022-04-23] MEDS: EPOETIN ALFA-EPBX 10,000 UNIT/ML VIAL SC SCH (14:14)
[2022-04-23] MEDS: HYDROCODONE/APAP 5MG-325MG TAB PO PRN ×2 (15:10→22:24)
[2022-04-23] MEDS: ATORVASTATIN 40 MG TAB PO SCH (22:11)
[2022-04-24] VITALS (8 sets, daily range): BP systolic 139–177; BP diastolic 54–74
[2022-04-24 04:57] LABS: BASOPHILS # (AUTO) 0.1 (0.0-0.1); BASOPHILS % 0.4 % (0.0-1.0); EOSINOPHILS # (AUTO) 0.3 (0.0-0.4); EOSINOPHILS % 2.2 % (0.0-6.0); HEMATOCRIT 23.7 % (38.2-49.6); HEMOGLOBIN 7.6 g/dL (14.0-18.0); LYMPHOCYTES # (AUTO) 0.9 (1.0-3.2); LYMPHOCYTES % 6.6 % (18.0-39.1); MEAN CORPUSCULAR HGB CONC 32.1 g/dL (31-35); MEAN CORPUSCULAR VOLUME 87.5 fL (81-99); MONOCYTES % 7.5 % (4.4-11.3); NEUTROPHILS # (AUTO) 10.8 (2.1-6.9); NEUTROPHILS % 79.5 % (38.7-80.0); PLATELET COUNT 313 x10e3/uL (140-360); RED BLOOD COUNT 2.71 x10e6/uL (4.3-5.7); RED CELL DISTRIBUTION WIDTH 19.8 % (11.7-14.4)
[2022-04-24 05:26] LABS: ANION GAP 22.7 mmol/L (8-16); CREATININE, SERUM 13.01 mg/dL (0.72-1.25); POTASSIUM 3.7 mmol/L (3.5-5.1)
[2022-04-24 05:28] LABS: CALCIUM 6.3 mg/dL (8.4-10.2)
[2022-04-24] MEDS ORDERED: CALCIUM GLUC 1 G/50 ML NACL 50 ML IV ONE (08:00)
[2022-04-24] MEDS: CARVEDILOL 12.5 MG TAB PO SCH ×2 (08:43→17:26)
[2022-04-24] MEDS: ISOSORBIDE MONONITRATE 30 MG TAB CR PO SCH (08:44)
[2022-04-24] MEDS: HYDROCODONE/APAP 5MG-325MG TAB PO PRN ×2 (08:44→15:44)
[2022-04-24] MEDS: HYDRALAZINE HCL 25 MG TAB PO SCH ×3 (08:44→21:23)
[2022-04-24] MEDS: BUMETANIDE 1 MG TAB PO SCH (08:45)
[2022-04-24] MEDS: CLOPIDOGREL BISULFATE 75 MG TAB PO SCH (08:45)
[2022-04-24] MEDS: ASPIRIN 81 MG ENTERIC COATED PO SCH (08:45)
[2022-04-24] MEDS ORDERED: PIPERACILLIN/TAZOBACTAM SOD 2.25 GM VIAL ONE (12:27)
[2022-04-24] MEDS ORDERED: POVIDONE IODINE 0.05% 0.05 % ML PO ONE (13:53)
[2022-04-24] MEDS ORDERED: DEXAMETHASONE SOD PHOS INJ 4 MG/ML SDV IV ONE (13:53)
[2022-04-24] MEDS ORDERED: ONDANSETRON HCL INJ 2MG/ML 2ML 2 MG/ML VIAL IV ONE (13:53)
[2022-04-24] MEDS ORDERED: PROPOFOL IV EMULSION 10 MG/ML 20 ML VIAL IV ONE (13:53)
[2022-04-24] MEDS ORDERED: ISOFLURANE INHAL SOLN 250 ML BTL INH ONE (13:54)
[2022-04-24] MEDS: ATORVASTATIN 40 MG TAB PO SCH (21:23)
[2022-04-25] VITALS (7 sets, daily range): BP systolic 133–177; BP diastolic 64–97
[2022-04-25] MEDS: BUMETANIDE 1 MG TAB PO SCH (08:14)
[2022-04-25] MEDS: HYDRALAZINE HCL 25 MG TAB PO SCH ×3 (08:15→21:10)
[2022-04-25] MEDS: ISOSORBIDE MONONITRATE 30 MG TAB CR PO SCH (08:15)
[2022-04-25] MEDS: CLOPIDOGREL BISULFATE 75 MG TAB PO SCH (08:15)
[2022-04-25] MEDS: CARVEDILOL 12.5 MG TAB PO SCH ×2 (08:15→16:35)
[2022-04-25] MEDS: ASPIRIN 81 MG ENTERIC COATED PO SCH (08:16)
[2022-04-25] MEDS: EPOETIN ALFA-EPBX 10,000 UNIT/ML VIAL SC SCH (14:08)
[2022-04-25] MEDS: ATORVASTATIN 40 MG TAB PO SCH (21:09)
[2022-04-26 01:29] VITALS: BP 143/51
[2022-04-26 05:31] VITALS: BP 170/66
[2022-04-26 08:00] VITALS: BP 137/55
[2022-04-26] MEDS: CLOPIDOGREL BISULFATE 75 MG TAB PO SCH (09:14)
[2022-04-26] MEDS: HYDRALAZINE HCL 25 MG TAB PO SCH ×2 (09:14→15:00)
[2022-04-26] MEDS: ISOSORBIDE MONONITRATE 30 MG TAB CR PO SCH (09:15)
[2022-04-26] MEDS: BUMETANIDE 1 MG TAB PO SCH (09:15)
[2022-04-26] MEDS: CARVEDILOL 12.5 MG TAB PO SCH ×2 (09:15→16:47)
[2022-04-26] MEDS: ASPIRIN 81 MG ENTERIC COATED PO SCH (09:16)
[2022-04-26] MEDS ORDERED: PLAVIX75 MG PO (10:09)
[2022-04-26 11:55] VITALS: BP 154/83
[2022-04-26 15:39] VITALS: BP 131/54
[2022-04-26] MEDS ORDERED: POTASSIUM CHLORIDE 20 MEQ TAB CR PO ONE (16:00)
== END 2022-04-26 17:55 | disposition home or self-care (01) | DRG 270 ==
LOC: ER 17:19 → ERHOLD 19:15 → MED/SURG2 21:30
PROVIDERS: ADMIT Internal Medicine; ATTEND Internal Medicine
PROC: 3E1M39Z Irrigation of Peritoneal Cavity using Dialysate, Percutaneous Approach (ICD-10-PCS; 2022-04-17)
PROC: 04CQ3ZZ Extirpation of Matter from Left Anterior Tibial Artery, Percutaneous Approach (ICD-10-PCS; 2022-04-19)
PROC: 047Q3Z1 Dilation of Left Anterior Tibial Artery using Drug-Coated Balloon, Percutaneous Approach (ICD-10-PCS; 2022-04-19)
PROC: B41D1ZZ Fluoroscopy of Aorta and Bilateral Lower Extremity Arteries using Low Osmolar Contrast (ICD-10-PCS; 2022-04-19)
PROC: 0Y6P0Z0 Detachment at Right 1st Toe, Complete, Open Approach (ICD-10-PCS; 2022-04-23)
PROC: 0Y6M0ZF Detachment at Right Foot, Partial 5th Ray, Open Approach (ICD-10-PCS; principal; 2022-04-23 07:51)
DX: E11.52 Type 2 diabetes mellitus with diabetic peripheral angiopathy with gangrene (principal); N18.6 End stage renal disease; I13.2 Hypertensive heart and chronic kidney disease with heart failure and with stage 5 chronic kidney disease, or end stage renal disease; M86.8X7 Other osteomyelitis, ankle and foot; I50.22 Chronic systolic (congestive) heart failure; E11.22 Type 2 diabetes mellitus with diabetic chronic kidney disease; Z99.2 Dependence on renal dialysis; E11.621 Type 2 diabetes mellitus with foot ulcer; L97.513 Non-pressure chronic ulcer of other part of right foot with necrosis of muscle; E78.5 Hyperlipidemia, unspecified; E11.69 Type 2 diabetes mellitus with other specified complication; E83.51 Hypocalcemia; D63.8 Anemia in other chronic diseases classified elsewhere; I70.202 Unspecified atherosclerosis of native arteries of extremities, left leg
CPT/HCPCS: 0223U; 36247; 36415; 37229; 75625; 75716; 76000; 80048; 80053; 82948; 83540; 84100; 84311; 84443; 84466; 85025; 86706; 87340; 88304; 88305; 88311; 93005; 93926; 99152; 99153; 99251; 99284; C1724; C1725; C1760; C1769; C1887; C1894; J1100; J1200; J1644; J2001; J2250; J2270; J2405; J2543; J2930; J3010; J3370; J7030; J7050; J7512; Q9967

== ENCOUNTER 2022-07-15 20:57 | Inpatient (IN) | payer MEDICARE ==
[~2022-07-15] VITALS: Ht 165.1 cm; Wt 79.8 kg
[~2022-07-15 20:57] MED LIST changes: +ASPIRIN EC81 MG PO; +ATORVASTATIN CA40 MG PO; +BUMETANIDE1 MG PO; +CARVEDILOL12.5 MG PO; +HYDRALAZINE HCL50 MG PO; +ISOSORBIDE MONO30 MG PO; +PLAVIX75 MG PO
[2022-07-15] MEDS ORDERED: Vancomycin IV 1 GM in SODIUM CHLORIDE 0.9% 250ML 250 ML IV ONE (21:15)
[2022-07-15 21:42] LABS: BASOPHILS # (AUTO) 0.2 (0.0-0.1); BASOPHILS % 0.5 % (0.0-1.0); EOSINOPHILS # (AUTO) 0.2 (0.0-0.4); EOSINOPHILS % 0.5 % (0.0-6.0); HEMATOCRIT 31.5 % (38.2-49.6); HEMOGLOBIN 9.9 g/dL (14.0-18.0); LYMPHOCYTES # (AUTO) 1.2 (1.0-3.2); LYMPHOCYTES % 4.1 % (18.0-39.1); MEAN CORPUSCULAR HEMOGLOBIN 33.7 pg (28-32); MEAN CORPUSCULAR HGB CONC 31.4 g/dL (31-35); MEAN CORPUSCULAR VOLUME 107.1 fL (81-99); MONOCYTES # (AUTO) 1.3 (0.2-0.8); MONOCYTES % 4.7 % (4.4-11.3); NEUTROPHILS # (AUTO) 24.6 (2.1-6.9); NEUTROPHILS % 87.6 % (38.7-80.0); PLATELET COUNT 533 x10e3/uL (140-360); RED BLOOD COUNT 2.94 x10e6/uL (4.3-5.7); RED CELL DISTRIBUTION WIDTH 14.6 % (11.7-14.4)
[2022-07-15 22:18] LABS: INR 1.14; PROTHROMBIN TIME 15.6 seconds (11.9-14.5)
[2022-07-15 22:19] LABS: PARTIAL THROMBOPLASTIN TIME 46.6 seconds (23.8-35.5)
[2022-07-15 22:25] LABS: ALANINE AMINOTRANSFERASE 22 IU/L (0-55); ALBUMIN 2.4 g/dL (3.5-5.0); ALBUMIN/GLOBULIN RATIO 0.4 (0.8-2.0); ALKALINE PHOSPHATASE 82 IU/L (40-150); ANION GAP 28.2 mmol/L (8-16); BLOOD UREA NITROGEN 86 mg/dL (7-26); BUN/CREATININE RATIO 7 (6-25); CARBON DIOXIDE 25 mmol/L (22-29); CHLORIDE 91 mmol/L (98-107); CREATININE, SERUM 11.49 mg/dL (0.72-1.25); GLUCOSE 135 mg/dL (74-118); POTASSIUM 5.2 mmol/L (3.5-5.1); SODIUM 139 mmol/L (136-145)
[2022-07-15 22:27] LABS: CALCIUM 9.4 mg/dL (8.4-10.2)
[2022-07-15] MEDS: ACETAMINOPHEN 325 MG TAB PO PRN (22:50)
[2022-07-15] MEDS ORDERED: ACETAMINOPHEN 325 MG TAB PO PRN (23:45)
[2022-07-15] MEDS ORDERED: ONDANSETRON HCL INJ 2MG/ML 2ML 2 MG/ML VIAL IV PRN (23:45)
[2022-07-16] VITALS (7 sets, daily range): BP systolic 117–181; BP diastolic 71–80
[2022-07-16] MEDS ORDERED: LANTUS 3ML100 UNITS/ SQ (02:28)
[2022-07-16] MEDS ORDERED: SEVELAMER CARB800 MG PO (02:28)
[2022-07-16] MEDS ORDERED: CEFUROXIME500 MG PO (02:28)
[2022-07-16 07:27] LABS: BASOPHILS # (AUTO) 0.1 (0.0-0.1); BASOPHILS % 0.5 % (0.0-1.0); EOSINOPHILS # (AUTO) 0.2 (0.0-0.4); EOSINOPHILS % 0.8 % (0.0-6.0); HEMATOCRIT 25.6 % (38.2-49.6); HEMOGLOBIN 8.4 g/dL (14.0-18.0); LYMPHOCYTES # (AUTO) 1.1 (1.0-3.2); LYMPHOCYTES % 4.2 % (18.0-39.1); MEAN CORPUSCULAR HEMOGLOBIN 33.2 pg (28-32); MEAN CORPUSCULAR HGB CONC 32.8 g/dL (31-35); MEAN CORPUSCULAR VOLUME 101.2 fL (81-99); MONOCYTES # (AUTO) 1.1 (0.2-0.8); MONOCYTES % 4.4 % (4.4-11.3); NEUTROPHILS # (AUTO) 22.2 (2.1-6.9); NEUTROPHILS % 87.1 % (38.7-80.0); PLATELET COUNT 479 x10e3/uL (140-360); RED BLOOD COUNT 2.53 x10e6/uL (4.3-5.7); RED CELL DISTRIBUTION WIDTH 14.7 % (11.7-14.4)
[2022-07-16 07:48] LABS: ALBUMIN 2.1 g/dL (3.5-5.0); ALBUMIN/GLOBULIN RATIO 0.4 (0.8-2.0); ANION GAP 26.8 mmol/L (8-16); CALCIUM 8.5 mg/dL (8.4-10.2); CREATININE, SERUM 11.77 mg/dL (0.72-1.25); POTASSIUM 4.8 mmol/L (3.5-5.1)
[2022-07-16] MEDS ORDERED: SODIUM CHLORIDE 0.9% 250ML 250 ML ONE (07:55)
[2022-07-16 08:51] LABS: LYMPHOCYTES % (MANUAL) 3 % (19-48); MONOCYTES % (MANUAL) 3 % (3.4-9.0); MYELOCYTES % (MANUAL) 1 % (0-0); NEUTROPHILS % (MANUAL) 92 % (40-74)
[2022-07-16 08:52] LABS: PLATELET ESTIMATE ADEQUATE; PLATELET MORPHOLOGY COMMENT NORMAL; RBC MORPHOLOGY COMMENT NORMAL
[2022-07-16] MEDS: ACETAMINOPHEN 325 MG TAB PO PRN ×2 (11:41→20:30)
[2022-07-16] MEDS ORDERED: PREDNISONE 20 MG TAB PO ONE (19:55)
[2022-07-16] MEDS: ATORVASTATIN 40 MG TAB PO SCH (20:31)
[2022-07-17] VITALS (13 sets, daily range): BP systolic 146–180; BP diastolic 57–100
[2022-07-17] MEDS ORDERED: PREDNISONE 20 MG TAB PO ONE (06:00)
[2022-07-17 06:22] LABS: BASOPHILS # (AUTO) 0.1 (0.0-0.1); BASOPHILS % 0.3 % (0.0-1.0); HEMATOCRIT 25.5 % (38.2-49.6); HEMOGLOBIN 8.5 g/dL (14.0-18.0); LYMPHOCYTES # (AUTO) 0.6 (1.0-3.2); MEAN CORPUSCULAR HGB CONC 33.3 g/dL (31-35); MONOCYTES # (AUTO) 0.4 (0.2-0.8); MONOCYTES % 1.4 % (4.4-11.3); NEUTROPHILS # (AUTO) 25.9 (2.1-6.9); NEUTROPHILS % 93.5 % (38.7-80.0); PLATELET COUNT 475 x10e3/uL (140-360); RED CELL DISTRIBUTION WIDTH 14.7 % (11.7-14.4)
[2022-07-17 06:43] LABS: ALBUMIN 2.1 g/dL (3.5-5.0); ALBUMIN/GLOBULIN RATIO 0.4 (0.8-2.0); ANION GAP 27.5 mmol/L (8-16); CALCIUM 8.5 mg/dL (8.4-10.2); CHOL/HDL RATIO 5.8 (3.9-4.7); CREATININE, SERUM 11.26 mg/dL (0.72-1.25); POTASSIUM 5.5 mmol/L (3.5-5.1)
[2022-07-17 07:08] LABS: THYROID STIMULATING HORMONE 2.258 uIU/mL (0.350-4.940)
[2022-07-17 07:10] LABS: % IRON SATURATION 30 % (15-50); IRON 40 ug/dL (65-175); TOTAL IRON BINDING CAPACITY 132 ug/dL (261-478); TRANSFERRIN 94 mg/dL (174-364)
[2022-07-17 08:25] LABS: LYMPHOCYTES % (MANUAL) 3 % (19-48); MONOCYTES % (MANUAL) 3 % (3.4-9.0); NEUTROPHILS % (MANUAL) 94 % (40-74)
[2022-07-17 08:26] LABS: PLATELET ESTIMATE ADEQUATE; PLATELET MORPHOLOGY COMMENT NORMAL; RBC MORPHOLOGY COMMENT NORMAL
[2022-07-17] MEDS ORDERED: LIDOCAINE 1% 10 ML MULTIDOSE VIAL IJ ONE ×2 (08:49→09:22)
[2022-07-17] MEDS ORDERED: HEPARIN SOD/SOD CHLORIDE 2,000 ML ONE (08:49)
[2022-07-17] MEDS ORDERED: IOPAMIDOL 300MG/ML 50ML INFUS..BTL IV ONE (08:54)
[2022-07-17] MEDS ORDERED: SODIUM CHLORIDE 0.9% 1000ML 1,000 ML ONE ×2 (08:57→09:31)
[2022-07-17] MEDS ORDERED: HEPARIN SOD (PORCINE) 1000 UNIT/ML 30ML ONE (08:59)
[2022-07-17] MEDS ORDERED: MIDAZOLAM HCL 2 MG/2 ML VIAL ONE ×2 (08:59→09:50)
[2022-07-17] MEDS ORDERED: NITROGLYCERIN/D5W 200 MCG/ML 250 ML ONE (08:59)
[2022-07-17] MEDS ORDERED: DIPHENHYDRAMINE HCL INJ 50 MG/ML VIAL ONE (09:00)
[2022-07-17] MEDS: CARVEDILOL 3.125 MG TAB PO SCH ×2 (09:00→16:48)
[2022-07-17] MEDS ORDERED: FENTANYL CITRATE/PF 100MCG/2 ML INJ ONE (09:00)
[2022-07-17] MEDS ORDERED: METHYLPREDNISOLONE SOD SUCC 125 MG/2ML VIAL ONE (09:00)
[2022-07-17] MEDS: ASPIRIN 81 MG ENTERIC COATED PO SCH (09:00)
[2022-07-17] MEDS: CLOPIDOGREL BISULFATE 75 MG TAB PO SCH (09:00)
[2022-07-17] MEDS ORDERED: VERAPAMIL HCL 2.5 MG/ML 2 ML VIAL ONE (09:31)
[2022-07-17] MEDS ORDERED: ASPIRIN 81 MG CHEW TAB ONE ×2 (10:38→10:42)
[2022-07-17] MEDS ORDERED: CLOPIDOGREL BISULFATE 75 MG TAB ONE (10:38)
[2022-07-17] MEDS ORDERED: ONDANSETRON HCL INJ 2MG/ML 2ML 2 MG/ML VIAL IV PRN (10:45)
[2022-07-17] MEDS ORDERED: SOD POLYSTYRENE SULFONATE SUSP 15 GM/60 ML BTL PO ONE ×2 (12:00→17:00)
[2022-07-17] MEDS: SODIUM BICARBONATE 650 MG TAB PO SCH ×2 (16:47→16:53)
[2022-07-17] MEDS: CLONIDINE HCL 0.1 MG TAB PO PRN ×2 (16:48)
[2022-07-17] MEDS: NIFEDIPINE CR 30 MG TAB PO SCH (20:39)
[2022-07-17] MEDS: ATORVASTATIN 40 MG TAB PO SCH (20:40)
[2022-07-18 04:56] VITALS: BP 110/78
[2022-07-18 05:47] LABS: BASOPHILS # (AUTO) 0.1 (0.0-0.1); BASOPHILS % 0.2 % (0.0-1.0); HEMOGLOBIN 7.8 g/dL (14.0-18.0); LYMPHOCYTES # (AUTO) 0.6 (1.0-3.2); LYMPHOCYTES % 2.1 % (18.0-39.1); MEAN CORPUSCULAR HEMOGLOBIN 32.2 pg (28-32); MEAN CORPUSCULAR HGB CONC 31.2 g/dL (31-35); MEAN CORPUSCULAR VOLUME 103.3 fL (81-99); MONOCYTES # (AUTO) 1.1 (0.2-0.8); MONOCYTES % 3.8 % (4.4-11.3); NEUTROPHILS # (AUTO) 25.8 (2.1-6.9); NEUTROPHILS % 91.3 % (38.7-80.0); PLATELET COUNT 528 x10e3/uL (140-360); RED BLOOD COUNT 2.42 x10e6/uL (4.3-5.7); RED CELL DISTRIBUTION WIDTH 13.8 % (11.7-14.4)
[2022-07-18 06:11] LABS: ALBUMIN/GLOBULIN RATIO 0.4 (0.8-2.0); ANION GAP 26.9 mmol/L (8-16); CALCIUM 8.1 mg/dL (8.4-10.2); CREATININE, SERUM 11.12 mg/dL (0.72-1.25); POTASSIUM 3.9 mmol/L (3.5-5.1)
[2022-07-18 06:59] LABS: BAND NEUTROPHILS % (MANUAL) 1 %; LYMPHOCYTES % (MANUAL) 3 % (19-48); MONOCYTES % (MANUAL) 3 % (3.4-9.0); NEUTROPHILS % (MANUAL) 93 % (40-74)
[2022-07-18 07:00] LABS: PLATELET ESTIMATE ADEQUATE; PLATELET MORPHOLOGY COMMENT NORMAL; RBC MORPHOLOGY COMMENT NORMAL
[2022-07-18 08:37] VITALS: BP 151/91
[2022-07-18] MEDS: ASPIRIN 81 MG ENTERIC COATED PO SCH (08:51)
[2022-07-18] MEDS: CLOPIDOGREL BISULFATE 75 MG TAB PO SCH (08:51)
[2022-07-18] MEDS: CARVEDILOL 3.125 MG TAB PO SCH ×2 (08:52→16:20)
[2022-07-18 09:00] VITALS: BP 151/98
[2022-07-18] MEDS ORDERED: EPOETIN ALFA-EPBX 10,000 UNIT/ML VIAL SC ONE (12:00)
[2022-07-18 13:09] VITALS: BP 164/70
[2022-07-18 16:17] VITALS: BP 113/63
[2022-07-18] MEDS: SODIUM BICARBONATE 650 MG TAB PO SCH (16:19)
[2022-07-18] MEDS: NIFEDIPINE CR 30 MG TAB PO SCH (16:19)
[2022-07-18] MEDS: IRON SUCROSE 100 MG in SODIUM CHLORIDE 0.9% 100 ML IV SCH (16:20)
[2022-07-18 20:00] VITALS: BP_SYST 113; BP_SYST 120; BP_DIAS 63; BP_DIAS 69
[2022-07-18] MEDS: ATORVASTATIN 40 MG TAB PO SCH (21:44)
[2022-07-19] VITALS (8 sets, daily range): BP systolic 103–165; BP diastolic 52–72
[2022-07-19 05:40] LABS: BASOPHILS # (AUTO) 0.1 (0.0-0.1); BASOPHILS % 0.4 % (0.0-1.0); EOSINOPHILS # (AUTO) 0.3 (0.0-0.4); EOSINOPHILS % 1.2 % (0.0-6.0); HEMATOCRIT 25.3 % (38.2-49.6); LYMPHOCYTES # (AUTO) 1.1 (1.0-3.2); LYMPHOCYTES % 4.8 % (18.0-39.1); MEAN CORPUSCULAR HEMOGLOBIN 32.8 pg (28-32); MEAN CORPUSCULAR HGB CONC 31.6 g/dL (31-35); MEAN CORPUSCULAR VOLUME 103.7 fL (81-99); MONOCYTES # (AUTO) 1.2 (0.2-0.8); MONOCYTES % 5.3 % (4.4-11.3); NEUTROPHILS # (AUTO) 17.9 (2.1-6.9); NEUTROPHILS % 80.4 % (38.7-80.0); PLATELET COUNT 480 x10e3/uL (140-360); RED BLOOD COUNT 2.44 x10e6/uL (4.3-5.7); RED CELL DISTRIBUTION WIDTH 14.4 % (11.7-14.4)
[2022-07-19 06:05] LABS: ANION GAP 27.8 mmol/L (8-16); CALCIUM 7.3 mg/dL (8.4-10.2); CREATININE, SERUM 11.07 mg/dL (0.72-1.25); POTASSIUM 3.8 mmol/L (3.5-5.1)
[2022-07-19 07:00] LABS: BAND NEUTROPHILS % (MANUAL) 1 %; LYMPHOCYTES % (MANUAL) 7 % (19-48); METAMYELOCYTES % (MANUAL) 3 % (0-0); MONOCYTES % (MANUAL) 3 % (3.4-9.0); MYELOCYTES % (MANUAL) 4 % (0-0); NEUTROPHILS % (MANUAL) 82 % (40-74)
[2022-07-19 07:01] LABS: PLATELET ESTIMATE ADEQUATE; PLATELET MORPHOLOGY COMMENT NORMAL; RBC MORPHOLOGY COMMENT ABNORMAL
[2022-07-19] MEDS: ASPIRIN 81 MG ENTERIC COATED PO SCH (08:50)
[2022-07-19] MEDS: SODIUM BICARBONATE 650 MG TAB PO SCH ×2 (08:50→17:48)
[2022-07-19] MEDS: CLOPIDOGREL BISULFATE 75 MG TAB PO SCH (08:50)
[2022-07-19] MEDS: CARVEDILOL 3.125 MG TAB PO SCH ×2 (08:51→17:49)
[2022-07-19] MEDS: HYDROCODONE/APAP 5MG-325MG TAB PO PRN ×2 (09:20→21:25)
[2022-07-19] MEDS ORDERED: SODIUM CHLORIDE 0.9% 250ML 250 ML ONE (09:27)
[2022-07-19] MEDS: IRON SUCROSE 100 MG in SODIUM CHLORIDE 0.9% 100 ML IV SCH (13:20)
[2022-07-19] MEDS: NIFEDIPINE CR 30 MG TAB PO SCH (17:49)
[2022-07-19] MEDS ORDERED: INSULIN LISPRO 100 UNIT/1 ML 3ML VIAL SQ SCH (21:00)
[2022-07-19] MEDS: INSULIN LISPRO 100 UNIT/1 ML 3ML VIAL SQ SCH (21:00)
[2022-07-19] MEDS: ATORVASTATIN 40 MG TAB PO SCH (21:17)
[2022-07-19] MEDS: CLONIDINE HCL 0.1 MG TAB PO PRN (21:21)
[2022-07-20] VITALS (9 sets, daily range): BP systolic 95–168; BP diastolic 50–82
[2022-07-20] MEDS: INSULIN LISPRO 100 UNIT/1 ML 3ML VIAL SQ SCH ×4 (07:30→22:35)
[2022-07-20] MEDS: ASPIRIN 81 MG ENTERIC COATED PO SCH (09:00)
[2022-07-20] MEDS: CLOPIDOGREL BISULFATE 75 MG TAB PO SCH (09:00)
[2022-07-20] MEDS: SODIUM BICARBONATE 650 MG TAB PO SCH ×2 (09:00→17:33)
[2022-07-20] MEDS: CARVEDILOL 3.125 MG TAB PO SCH ×2 (09:23→17:34)
[2022-07-20] MEDS ORDERED: BUPIVACAINE HCL 0.5% INJ 30 ML VIAL INJ ONE ×2 (11:36→11:43)
[2022-07-20] MEDS ORDERED: DEXAMETHASONE SOD PHOS INJ 4 MG/ML SDV ONE (11:43)
[2022-07-20] MEDS ORDERED: NEOSTIGMINE 1 MG/ML 10ML VIAL ONE (11:43)
[2022-07-20] MEDS ORDERED: FENTANYL CITRATE/PF 100MCG/2 ML INJ ONE (12:21)
[2022-07-20] MEDS ORDERED: POVIDONE IODINE 0.05% 0.05 % ML PO ONE (13:20)
[2022-07-20] MEDS ORDERED: LIDOCAINE HCL 2% LOCAL INJ 5 ML SDV VIAL INJ ONE (13:20)
[2022-07-20] MEDS ORDERED: ONDANSETRON HCL INJ 2MG/ML 2ML 2 MG/ML VIAL ONE (13:20)
[2022-07-20] MEDS ORDERED: PROPOFOL IV EMULSION 10 MG/ML 20 ML VIAL ONE (13:20)
[2022-07-20] MEDS ORDERED: FAMOTIDINE 20 MG/2 ML VIAL IV ONE (13:20)
[2022-07-20] MEDS: IRON SUCROSE 100 MG in SODIUM CHLORIDE 0.9% 100 ML IV SCH (13:54)
[2022-07-20] MEDS: NIFEDIPINE CR 30 MG TAB PO SCH (17:34)
[2022-07-20] MEDS: ATORVASTATIN 40 MG TAB PO SCH (22:33)
[2022-07-20] MEDS: HYDROCODONE/APAP 5MG-325MG TAB PO PRN (22:39)
[2022-07-21] VITALS (7 sets, daily range): BP systolic 108–152; BP diastolic 50–78
[2022-07-21 05:47] LABS: BASOPHILS # (AUTO) 0.1 (0.0-0.1); BASOPHILS % 0.4 % (0.0-1.0); EOSINOPHILS # (AUTO) 0.2 (0.0-0.4); EOSINOPHILS % 0.6 % (0.0-6.0); HEMATOCRIT 23.5 % (38.2-49.6); HEMOGLOBIN 7.7 g/dL (14.0-18.0); LYMPHOCYTES # (AUTO) 0.8 (1.0-3.2); LYMPHOCYTES % 2.6 % (18.0-39.1); MEAN CORPUSCULAR HEMOGLOBIN 32.8 pg (28-32); MEAN CORPUSCULAR HGB CONC 32.8 g/dL (31-35); MONOCYTES # (AUTO) 1.4 (0.2-0.8); MONOCYTES % 4.5 % (4.4-11.3); NEUTROPHILS # (AUTO) 26.7 (2.1-6.9); NEUTROPHILS % 86.5 % (38.7-80.0); PLATELET COUNT 573 x10e3/uL (140-360); RED BLOOD COUNT 2.35 x10e6/uL (4.3-5.7); RED CELL DISTRIBUTION WIDTH 15.2 % (11.7-14.4)
[2022-07-21 06:01] LABS: ANION GAP 25.4 mmol/L (8-16); CALCIUM 7.3 mg/dL (8.4-10.2); CREATININE, SERUM 10.4 mg/dL (0.72-1.25); POTASSIUM 3.4 mmol/L (3.5-5.1)
[2022-07-21] MEDS: HYDROCODONE/APAP 5MG-325MG TAB PO PRN ×2 (06:26→18:20)
[2022-07-21] MEDS: INSULIN LISPRO 100 UNIT/1 ML 3ML VIAL SQ SCH ×4 (07:30→21:00)
[2022-07-21] MEDS: SODIUM BICARBONATE 650 MG TAB PO SCH ×2 (09:25→18:06)
[2022-07-21] MEDS: CLOPIDOGREL BISULFATE 75 MG TAB PO SCH (09:25)
[2022-07-21] MEDS: ASPIRIN 81 MG ENTERIC COATED PO SCH (09:25)
[2022-07-21] MEDS: CARVEDILOL 3.125 MG TAB PO SCH ×2 (09:26→18:08)
[2022-07-21 10:47] LABS: LYMPHOCYTES % (MANUAL) 3 % (19-48); METAMYELOCYTES % (MANUAL) 3 % (0-0); MONOCYTES % (MANUAL) 4 % (3.4-9.0); NEUTROPHILS % (MANUAL) 89 % (40-74); PLATELET ESTIMATE ADEQUATE; PLATELET MORPHOLOGY COMMENT NORMAL; RBC MORPHOLOGY COMMENT NORMAL
[2022-07-21] MEDS: IRON SUCROSE 100 MG in SODIUM CHLORIDE 0.9% 100 ML IV SCH (13:44)
[2022-07-21] MEDS ORDERED: EPOETIN ALFA-EPBX 10,000 UNIT/ML VIAL SC SCH (14:00)
[2022-07-21] MEDS ORDERED: POTASSIUM CHLORIDE 10MEQ EA PO ONE (15:45)
[2022-07-21] MEDS: NIFEDIPINE CR 30 MG TAB PO SCH (18:08)
[2022-07-21] MEDS: ATORVASTATIN 40 MG TAB PO SCH (21:00)
[2022-07-22] VITALS (8 sets, daily range): BP systolic 115–166; BP diastolic 64–76
[2022-07-22 07:17] LABS: BASOPHILS # (AUTO) 0.1 (0.0-0.1); BASOPHILS % 0.4 % (0.0-1.0); EOSINOPHILS # (AUTO) 0.3 (0.0-0.4); HEMATOCRIT 23.2 % (38.2-49.6); HEMOGLOBIN 7.6 g/dL (14.0-18.0); LYMPHOCYTES # (AUTO) 0.6 (1.0-3.2); LYMPHOCYTES % 2.2 % (18.0-39.1); MEAN CORPUSCULAR HEMOGLOBIN 32.8 pg (28-32); MEAN CORPUSCULAR HGB CONC 32.8 g/dL (31-35); MONOCYTES # (AUTO) 1.2 (0.2-0.8); MONOCYTES % 4.7 % (4.4-11.3); NEUTROPHILS # (AUTO) 23.4 (2.1-6.9); NEUTROPHILS % 88.6 % (38.7-80.0); PLATELET COUNT 484 x10e3/uL (140-360); RED BLOOD COUNT 2.32 x10e6/uL (4.3-5.7); RED CELL DISTRIBUTION WIDTH 15.4 % (11.7-14.4)
[2022-07-22] MEDS: INSULIN LISPRO 100 UNIT/1 ML 3ML VIAL SQ SCH ×4 (07:30→21:47)
[2022-07-22 07:50] LABS: ALBUMIN 1.7 g/dL (3.5-5.0); ALBUMIN/GLOBULIN RATIO 0.3 (0.8-2.0); ANION GAP 25.4 mmol/L (8-16); CALCIUM 7.7 mg/dL (8.4-10.2); CREATININE, SERUM 10.12 mg/dL (0.72-1.25); POTASSIUM 3.4 mmol/L (3.5-5.1)
[2022-07-22] MEDS: CLOPIDOGREL BISULFATE 75 MG TAB PO SCH (09:46)
[2022-07-22] MEDS: SODIUM BICARBONATE 650 MG TAB PO SCH ×2 (09:46→19:19)
[2022-07-22] MEDS: ASPIRIN 81 MG ENTERIC COATED PO SCH (09:47)
[2022-07-22] MEDS: CARVEDILOL 3.125 MG TAB PO SCH ×2 (09:47→19:19)
[2022-07-22 12:10] LABS: EOSINOPHILS % (MANUAL) 2 % (0-7); LYMPHOCYTES % (MANUAL) 4 % (19-48); MONOCYTES % (MANUAL) 5 % (3.4-9.0); NEUTROPHILS % (MANUAL) 89 % (40-74); PLATELET ESTIMATE ADEQUATE; PLATELET MORPHOLOGY COMMENT NORMAL; RBC MORPHOLOGY COMMENT NORMAL
[2022-07-22] MEDS: IRON SUCROSE 100 MG in SODIUM CHLORIDE 0.9% 100 ML IV SCH (14:37)
[2022-07-22] MEDS: NIFEDIPINE CR 30 MG TAB PO SCH (19:19)
[2022-07-22] MEDS: ATORVASTATIN 40 MG TAB PO SCH (21:47)
[2022-07-23] VITALS (8 sets, daily range): BP systolic 113–139; BP diastolic 59–79
[2022-07-23 06:04] LABS: ANION GAP 26.4 mmol/L (8-16); CALCIUM 7.9 mg/dL (8.4-10.2); CREATININE, SERUM 9.86 mg/dL (0.72-1.25); POTASSIUM 3.4 mmol/L (3.5-5.1)
[2022-07-23 06:16] LABS: BASOPHILS # (AUTO) 0.1 (0.0-0.1); BASOPHILS % 0.4 % (0.0-1.0); EOSINOPHILS # (AUTO) 0.2 (0.0-0.4); HEMATOCRIT 25.1 % (38.2-49.6); LYMPHOCYTES # (AUTO) 0.5 (1.0-3.2); MEAN CORPUSCULAR HEMOGLOBIN 32.1 pg (28-32); MEAN CORPUSCULAR HGB CONC 31.9 g/dL (31-35); MEAN CORPUSCULAR VOLUME 100.8 fL (81-99); MONOCYTES # (AUTO) 1.5 (0.2-0.8); MONOCYTES % 6.4 % (4.4-11.3); NEUTROPHILS # (AUTO) 20.8 (2.1-6.9); PLATELET COUNT 490 x10e3/uL (140-360); RED BLOOD COUNT 2.49 x10e6/uL (4.3-5.7); RED CELL DISTRIBUTION WIDTH 15.7 % (11.7-14.4)
[2022-07-23] MEDS: INSULIN LISPRO 100 UNIT/1 ML 3ML VIAL SQ SCH ×4 (07:30→21:00)
[2022-07-23] MEDS: CLOPIDOGREL BISULFATE 75 MG TAB PO SCH (08:35)
[2022-07-23] MEDS: CARVEDILOL 3.125 MG TAB PO SCH ×2 (08:35→18:11)
[2022-07-23] MEDS: SODIUM BICARBONATE 650 MG TAB PO SCH ×2 (08:35→18:10)
[2022-07-23] MEDS: ASPIRIN 81 MG ENTERIC COATED PO SCH (08:35)
[2022-07-23 09:12] LABS: LYMPHOCYTES % (MANUAL) 6 % (19-48); MONOCYTES % (MANUAL) 1 % (3.4-9.0); NEUTROPHILS % (MANUAL) 93 % (40-74); PLATELET ESTIMATE ADEQUATE; PLATELET MORPHOLOGY COMMENT NORMAL; RBC MORPHOLOGY COMMENT NORMAL
[2022-07-23] MEDS ORDERED: POTASSIUM CHLORIDE 10MEQ EA PO ONE (11:00)
[2022-07-23] MEDS: NIFEDIPINE CR 30 MG TAB PO SCH (18:11)
[2022-07-23] MEDS: ATORVASTATIN 40 MG TAB PO SCH (21:08)
[2022-07-23] MEDS: ONDANSETRON HCL 4 MG ORAL DISINTEGRATING TAB PO PRN (22:38)
[2022-07-24] VITALS (8 sets, daily range): BP systolic 100–154; BP diastolic 56–83
[2022-07-24 06:14] LABS: BASOPHILS # (AUTO) 0.1 (0.0-0.1); BASOPHILS % 0.4 % (0.0-1.0); EOSINOPHILS # (AUTO) 0.1 (0.0-0.4); EOSINOPHILS % 0.4 % (0.0-6.0); HEMATOCRIT 23.8 % (38.2-49.6); HEMOGLOBIN 7.7 g/dL (14.0-18.0); LYMPHOCYTES # (AUTO) 0.6 (1.0-3.2); LYMPHOCYTES % 2.9 % (18.0-39.1); MEAN CORPUSCULAR HEMOGLOBIN 32.5 pg (28-32); MEAN CORPUSCULAR HGB CONC 32.4 g/dL (31-35); MEAN CORPUSCULAR VOLUME 100.4 fL (81-99); MONOCYTES # (AUTO) 1.4 (0.2-0.8); MONOCYTES % 6.7 % (4.4-11.3); NEUTROPHILS # (AUTO) 18.6 (2.1-6.9); NEUTROPHILS % 87.8 % (38.7-80.0); PLATELET COUNT 456 x10e3/uL (140-360); RED BLOOD COUNT 2.37 x10e6/uL (4.3-5.7); RED CELL DISTRIBUTION WIDTH 15.5 % (11.7-14.4)
[2022-07-24 07:54] LABS: BAND NEUTROPHILS % (MANUAL) 3 %; EOSINOPHILS % (MANUAL) 2 % (0-7); LYMPHOCYTES % (MANUAL) 2 % (19-48); METAMYELOCYTES % (MANUAL) 3 % (0-0); MONOCYTES % (MANUAL) 4 % (3.4-9.0); NEUTROPHILS % (MANUAL) 86 % (40-74)
[2022-07-24 07:56] LABS: PLATELET ESTIMATE SLIGHTLY INCREASED; PLATELET MORPHOLOGY COMMENT NORMAL
[2022-07-24 09:29] LABS: RBC MORPHOLOGY COMMENT NORMAL
[2022-07-24] MEDS: SODIUM BICARBONATE 650 MG TAB PO SCH ×2 (10:00→17:04)
[2022-07-24] MEDS: ASPIRIN 81 MG ENTERIC COATED PO SCH (10:00)
[2022-07-24] MEDS: CARVEDILOL 3.125 MG TAB PO SCH ×2 (10:00→17:05)
[2022-07-24] MEDS: CLOPIDOGREL BISULFATE 75 MG TAB PO SCH (10:00)
[2022-07-24] MEDS: INSULIN LISPRO 100 UNIT/1 ML 3ML VIAL SQ SCH ×4 (11:21→21:27)
[2022-07-24] MEDS: ACETAMINOPHEN 325 MG TAB PO PRN (13:10)
[2022-07-24] MEDS ORDERED: POTASSIUM CHLORIDE 20 MEQ TAB CR PO ONE (15:00)
[2022-07-24] MEDS ORDERED: LACTULOSE SYRUP 20 GM/30 ML UDC PO ONE (15:00)
[2022-07-24] MEDS ORDERED: EPOETIN ALFA-EPBX 10,000 UNIT/ML VIAL SC ONE (15:00)
[2022-07-24] MEDS: IRON SUCROSE 100 MG in SODIUM CHLORIDE 0.9% 100 ML IV SCH (17:04)
[2022-07-24] MEDS: NIFEDIPINE CR 30 MG TAB PO SCH (17:05)
[2022-07-24] MEDS: ATORVASTATIN 40 MG TAB PO SCH (21:16)
[2022-07-25] VITALS (8 sets, daily range): BP systolic 112–168; BP diastolic 54–81
[2022-07-25 05:59] LABS: BASOPHILS # (AUTO) 0.1 (0.0-0.1); BASOPHILS % 0.4 % (0.0-1.0); EOSINOPHILS # (AUTO) 0.2 (0.0-0.4); EOSINOPHILS % 0.9 % (0.0-6.0); HEMATOCRIT 25.8 % (38.2-49.6); HEMOGLOBIN 8.1 g/dL (14.0-18.0); LYMPHOCYTES # (AUTO) 0.6 (1.0-3.2); LYMPHOCYTES % 2.9 % (18.0-39.1); MEAN CORPUSCULAR HEMOGLOBIN 32.4 pg (28-32); MEAN CORPUSCULAR HGB CONC 31.4 g/dL (31-35); MEAN CORPUSCULAR VOLUME 103.2 fL (81-99); MONOCYTES # (AUTO) 1.5 (0.2-0.8); NEUTROPHILS # (AUTO) 18.2 (2.1-6.9); NEUTROPHILS % 87.3 % (38.7-80.0); PLATELET COUNT 451 x10e3/uL (140-360); RED CELL DISTRIBUTION WIDTH 15.7 % (11.7-14.4)
[2022-07-25 06:28] LABS: ALBUMIN 1.5 g/dL (3.5-5.0); ALBUMIN/GLOBULIN RATIO 0.2 (0.8-2.0); ANION GAP 28.7 mmol/L (8-16); CALCIUM 8.3 mg/dL (8.4-10.2); CREATININE, SERUM 9.65 mg/dL (0.72-1.25); POTASSIUM 3.7 mmol/L (3.5-5.1)
[2022-07-25 07:45] LABS: EOSINOPHILS % (MANUAL) 1 % (0-7); LYMPHOCYTES % (MANUAL) 5 % (19-48); MONOCYTES % (MANUAL) 6 % (3.4-9.0); NEUTROPHILS % (MANUAL) 88 % (40-74); PLATELET ESTIMATE ADEQUATE; PLATELET MORPHOLOGY COMMENT NORMAL
[2022-07-25 07:48] LABS: RBC MORPHOLOGY COMMENT NORMAL
[2022-07-25] MEDS: INSULIN LISPRO 100 UNIT/1 ML 3ML VIAL SQ SCH ×4 (08:00→22:28)
[2022-07-25] MEDS: ASPIRIN 81 MG ENTERIC COATED PO SCH (09:56)
[2022-07-25] MEDS: CLOPIDOGREL BISULFATE 75 MG TAB PO SCH (09:56)
[2022-07-25] MEDS: SODIUM BICARBONATE 650 MG TAB PO SCH ×2 (09:56→16:58)
[2022-07-25] MEDS: CARVEDILOL 3.125 MG TAB PO SCH ×2 (09:57→16:58)
[2022-07-25] MEDS: ACETAMINOPHEN 325 MG TAB PO PRN (14:09)
[2022-07-25] MEDS: IRON SUCROSE 100 MG in SODIUM CHLORIDE 0.9% 100 ML IV SCH (16:58)
[2022-07-25] MEDS: NIFEDIPINE CR 30 MG TAB PO SCH (16:59)
[2022-07-25] MEDS: HYDROCODONE/APAP 5MG-325MG TAB PO PRN (17:13)
[2022-07-25] MEDS: ATORVASTATIN 40 MG TAB PO SCH (22:31)
[2022-07-26] VITALS (7 sets, daily range): BP systolic 121–170; BP diastolic 60–82
[2022-07-26] MEDS: HYDROCODONE/APAP 5MG-325MG TAB PO PRN (02:26)
[2022-07-26 06:03] LABS: BASOPHILS # (AUTO) 0.1 (0.0-0.1); BASOPHILS % 0.4 % (0.0-1.0); EOSINOPHILS # (AUTO) 0.3 (0.0-0.4); EOSINOPHILS % 1.4 % (0.0-6.0); HEMATOCRIT 23.7 % (38.2-49.6); HEMOGLOBIN 7.6 g/dL (14.0-18.0); LYMPHOCYTES # (AUTO) 0.7 (1.0-3.2); LYMPHOCYTES % 3.3 % (18.0-39.1); MEAN CORPUSCULAR HEMOGLOBIN 32.3 pg (28-32); MEAN CORPUSCULAR HGB CONC 32.1 g/dL (31-35); MEAN CORPUSCULAR VOLUME 100.9 fL (81-99); MONOCYTES # (AUTO) 1.2 (0.2-0.8); MONOCYTES % 5.3 % (4.4-11.3); NEUTROPHILS # (AUTO) 19.7 (2.1-6.9); NEUTROPHILS % 87.7 % (38.7-80.0); PLATELET COUNT 500 x10e3/uL (140-360); RED BLOOD COUNT 2.35 x10e6/uL (4.3-5.7); RED CELL DISTRIBUTION WIDTH 15.2 % (11.7-14.4)
[2022-07-26 06:30] LABS: ANION GAP 25.8 mmol/L (8-16); CALCIUM 8.1 mg/dL (8.4-10.2); CREATININE, SERUM 9.08 mg/dL (0.72-1.25); POTASSIUM 3.8 mmol/L (3.5-5.1)
[2022-07-26] MEDS: CLOPIDOGREL BISULFATE 75 MG TAB PO SCH (08:12)
[2022-07-26] MEDS: SODIUM BICARBONATE 650 MG TAB PO SCH ×2 (08:13→16:35)
[2022-07-26] MEDS: INSULIN LISPRO 100 UNIT/1 ML 3ML VIAL SQ SCH ×4 (08:13→21:46)
[2022-07-26] MEDS: CARVEDILOL 3.125 MG TAB PO SCH ×2 (08:13→16:36)
[2022-07-26] MEDS: ASPIRIN 81 MG ENTERIC COATED PO SCH (08:13)
[2022-07-26 09:06] LABS: EOSINOPHILS % (MANUAL) 1 % (0-7); LYMPHOCYTES % (MANUAL) 5 % (19-48); MONOCYTES % (MANUAL) 4 % (3.4-9.0); NEUTROPHILS % (MANUAL) 90 % (40-74)
[2022-07-26 09:07] LABS: PLATELET ESTIMATE SLIGHTLY INCREASED; PLATELET MORPHOLOGY COMMENT NORMAL; RBC MORPHOLOGY COMMENT NORMAL
[2022-07-26] MEDS ORDERED: FLUCONAZOLE 100 MG TAB PO ONE (11:45)
[2022-07-26] MEDS: IRON SUCROSE 100 MG in SODIUM CHLORIDE 0.9% 100 ML IV SCH (16:32)
[2022-07-26] MEDS: NIFEDIPINE CR 30 MG TAB PO SCH (16:35)
[2022-07-26] MEDS: ATORVASTATIN 40 MG TAB PO SCH (21:45)
[2022-07-27] VITALS (8 sets, daily range): BP systolic 115–154; BP diastolic 53–84
[2022-07-27 06:09] LABS: BASOPHILS # (AUTO) 0.1 (0.0-0.1); BASOPHILS % 0.4 % (0.0-1.0); EOSINOPHILS # (AUTO) 0.3 (0.0-0.4); EOSINOPHILS % 1.1 % (0.0-6.0); HEMATOCRIT 24.5 % (38.2-49.6); HEMOGLOBIN 7.8 g/dL (14.0-18.0); LYMPHOCYTES # (AUTO) 0.9 (1.0-3.2); LYMPHOCYTES % 3.6 % (18.0-39.1); MEAN CORPUSCULAR HEMOGLOBIN 32.1 pg (28-32); MEAN CORPUSCULAR HGB CONC 31.8 g/dL (31-35); MEAN CORPUSCULAR VOLUME 100.8 fL (81-99); MONOCYTES # (AUTO) 1.3 (0.2-0.8); MONOCYTES % 5.4 % (4.4-11.3); NEUTROPHILS # (AUTO) 21.6 (2.1-6.9); NEUTROPHILS % 87.9 % (38.7-80.0); PLATELET COUNT 468 x10e3/uL (140-360); RED BLOOD COUNT 2.43 x10e6/uL (4.3-5.7); RED CELL DISTRIBUTION WIDTH 15.3 % (11.7-14.4)
[2022-07-27] MEDS: INSULIN LISPRO 100 UNIT/1 ML 3ML VIAL SQ SCH ×4 (07:19→22:11)
[2022-07-27] MEDS: ASPIRIN 81 MG ENTERIC COATED PO SCH (08:27)
[2022-07-27] MEDS: CARVEDILOL 3.125 MG TAB PO SCH ×2 (08:27→17:26)
[2022-07-27] MEDS: CLOPIDOGREL BISULFATE 75 MG TAB PO SCH (08:28)
[2022-07-27] MEDS: SODIUM BICARBONATE 650 MG TAB PO SCH ×2 (08:28→17:26)
[2022-07-27 08:43] LABS: LYMPHOCYTES % (MANUAL) 2 % (19-48); MONOCYTES % (MANUAL) 4 % (3.4-9.0); MYELOCYTES % (MANUAL) 2 % (0-0); NEUTROPHILS % (MANUAL) 92 % (40-74); NUCLEATED RED BLOOD CELLS 1; PLATELET ESTIMATE ADEQUATE; PLATELET MORPHOLOGY COMMENT NORMAL; RBC MORPHOLOGY COMMENT NORMAL
[2022-07-27] MEDS ORDERED: SODIUM CHLORIDE 0.9% 500ML 500 ML ONE (13:25)
[2022-07-27] MEDS: IRON SUCROSE 100 MG in SODIUM CHLORIDE 0.9% 100 ML IV SCH (17:26)
[2022-07-27] MEDS: NIFEDIPINE CR 30 MG TAB PO SCH (17:26)
[2022-07-27] MEDS: ATORVASTATIN 40 MG TAB PO SCH (22:09)
[2022-07-28] VITALS (7 sets, daily range): BP systolic 118–164; BP diastolic 68–84
[2022-07-28 06:41] LABS: BASOPHILS # (AUTO) 0.1 (0.0-0.1); BASOPHILS % 0.4 % (0.0-1.0); EOSINOPHILS # (AUTO) 0.2 (0.0-0.4); EOSINOPHILS % 0.8 % (0.0-6.0); HEMATOCRIT 25.6 % (38.2-49.6); HEMOGLOBIN 8.1 g/dL (14.0-18.0); LYMPHOCYTES # (AUTO) 0.7 (1.0-3.2); LYMPHOCYTES % 3.1 % (18.0-39.1); MEAN CORPUSCULAR HGB CONC 31.6 g/dL (31-35); MEAN CORPUSCULAR VOLUME 101.2 fL (81-99); MONOCYTES # (AUTO) 1.2 (0.2-0.8); MONOCYTES % 5.1 % (4.4-11.3); NEUTROPHILS # (AUTO) 20.5 (2.1-6.9); NEUTROPHILS % 88.9 % (38.7-80.0); PLATELET COUNT 479 x10e3/uL (140-360); RED BLOOD COUNT 2.53 x10e6/uL (4.3-5.7); RED CELL DISTRIBUTION WIDTH 15.4 % (11.7-14.4)
[2022-07-28 07:22] LABS: ANION GAP 28.6 mmol/L (8-16); CALCIUM 8.4 mg/dL (8.4-10.2); CREATININE, SERUM 9.2 mg/dL (0.72-1.25); POTASSIUM 3.6 mmol/L (3.5-5.1)
[2022-07-28] MEDS: INSULIN LISPRO 100 UNIT/1 ML 3ML VIAL SQ SCH ×4 (07:30→20:30)
[2022-07-28] MEDS: ASPIRIN 81 MG ENTERIC COATED PO SCH (09:35)
[2022-07-28] MEDS: SODIUM BICARBONATE 650 MG TAB PO SCH ×2 (09:35→17:38)
[2022-07-28] MEDS: CARVEDILOL 3.125 MG TAB PO SCH ×2 (09:36→17:38)
[2022-07-28 11:20] LABS: BAND NEUTROPHILS % (MANUAL) 2 %; EOSINOPHILS % (MANUAL) 2 % (0-7); LYMPHOCYTES % (MANUAL) 7 % (19-48); MONOCYTES % (MANUAL) 3 % (3.4-9.0); MYELOCYTES % (MANUAL) 1 % (0-0); NEUTROPHILS % (MANUAL) 85 % (40-74)
[2022-07-28 11:21] LABS: PLATELET ESTIMATE SLIGHTLY INCREASED; PLATELET MORPHOLOGY COMMENT NORMAL
[2022-07-28] MEDS ORDERED: FLUCONAZOLE 100 MG TAB PO NR (15:00)
[2022-07-28] MEDS: HYDROCODONE/APAP 5MG-325MG TAB PO PRN (15:58)
[2022-07-28] MEDS: IRON SUCROSE 100 MG in SODIUM CHLORIDE 0.9% 100 ML IV SCH (17:37)
[2022-07-28] MEDS: NIFEDIPINE CR 30 MG TAB PO SCH (17:38)
[2022-07-28] MEDS: ATORVASTATIN 40 MG TAB PO SCH (20:30)
[2022-07-29] VITALS (7 sets, daily range): BP systolic 126–159; BP diastolic 53–84
[2022-07-29] MEDS: INSULIN LISPRO 100 UNIT/1 ML 3ML VIAL SQ SCH ×4 (07:30→22:30)
[2022-07-29] MEDS: CARVEDILOL 3.125 MG TAB PO SCH ×2 (09:48→17:22)
[2022-07-29] MEDS: SODIUM BICARBONATE 650 MG TAB PO SCH ×2 (09:48→17:21)
[2022-07-29] MEDS: ASPIRIN 81 MG ENTERIC COATED PO SCH (09:48)
[2022-07-29] MEDS: NIFEDIPINE CR 30 MG TAB PO SCH (17:21)
[2022-07-29] MEDS: ATORVASTATIN 40 MG TAB PO SCH (22:18)
[2022-07-30] VITALS: BP 133/44
[2022-07-30 04:00] VITALS: BP 140/75
[2022-07-30 06:16] LABS: BASOPHILS # (AUTO) 0.1 (0.0-0.1); BASOPHILS % 0.4 % (0.0-1.0); EOSINOPHILS # (AUTO) 0.3 (0.0-0.4); EOSINOPHILS % 1.2 % (0.0-6.0); HEMOGLOBIN 7.6 g/dL (14.0-18.0); LYMPHOCYTES # (AUTO) 0.8 (1.0-3.2); LYMPHOCYTES % 3.4 % (18.0-39.1); MEAN CORPUSCULAR HEMOGLOBIN 32.2 pg (28-32); MEAN CORPUSCULAR HGB CONC 30.4 g/dL (31-35); MONOCYTES # (AUTO) 1.2 (0.2-0.8); MONOCYTES % 5.3 % (4.4-11.3); NEUTROPHILS % 88.4 % (38.7-80.0); PLATELET COUNT 493 x10e3/uL (140-360); RED BLOOD COUNT 2.36 x10e6/uL (4.3-5.7)
[2022-07-30 06:28] LABS: MEAN CORPUSCULAR VOLUME 105.9 fL (81-99)
[2022-07-30 06:38] LABS: ANION GAP 27.3 mmol/L (8-16); CALCIUM 7.6 mg/dL (8.4-10.2); CREATININE, SERUM 9.65 mg/dL (0.72-1.25); POTASSIUM 3.3 mmol/L (3.5-5.1)
[2022-07-30 07:42] VITALS: BP 160/72
[2022-07-30 08:00] VITALS: BP 160/72
[2022-07-30] MEDS: INSULIN LISPRO 100 UNIT/1 ML 3ML VIAL SQ SCH ×3 (08:30→16:17)
[2022-07-30 08:41] LABS: EOSINOPHILS % (MANUAL) 1 % (0-7); LYMPHOCYTES % (MANUAL) 2 % (19-48); MONOCYTES % (MANUAL) 10 % (3.4-9.0); MYELOCYTES % (MANUAL) 1 % (0-0); NEUTROPHILS % (MANUAL) 86 % (40-74); PLATELET ESTIMATE ADEQUATE; PLATELET MORPHOLOGY COMMENT NORMAL; RBC MORPHOLOGY COMMENT NORMAL
[2022-07-30] MEDS: ASPIRIN 81 MG ENTERIC COATED PO SCH (09:00)
[2022-07-30] MEDS: CARVEDILOL 3.125 MG TAB PO SCH ×2 (09:00→16:55)
[2022-07-30] MEDS: SODIUM BICARBONATE 650 MG TAB PO SCH ×2 (09:00→16:57)
[2022-07-30] MEDS ORDERED: POTASSIUM CHLORIDE 10MEQ/100ML 100 ML IV ONE (11:00)
[2022-07-30 11:31] VITALS: BP 158/81
[2022-07-30] MEDS ORDERED: SODIUM CHLORIDE 0.9% 100 ML ONE (11:56)
[2022-07-30] MEDS ORDERED: PROPOFOL IV EMULSION 10 MG/ML 20 ML VIAL ONE (12:15)
[2022-07-30] MEDS ORDERED: SEVOFLURANE INHAL SOLN 250 ML PEN BTL ONE (12:15)
[2022-07-30] MEDS ORDERED: LIDOCAINE HCL 2% LOCAL INJ 5 ML SDV VIAL INJ ONE (12:15)
[2022-07-30] MEDS ORDERED: POVIDONE IODINE 0.05% 0.05 % ML PO ONE (12:15)
[2022-07-30] MEDS ORDERED: ONDANSETRON HCL INJ 2MG/ML 2ML 2 MG/ML VIAL ONE (12:15)
[2022-07-30] MEDS ORDERED: FENTANYL CITRATE/PF 100MCG/2 ML INJ ONE (12:22)
[2022-07-30 15:45] VITALS: BP 177/78
[2022-07-30] MEDS: NIFEDIPINE CR 30 MG TAB PO SCH (16:55)
[2022-07-30] MEDS ORDERED: HYDROMORPHONE 1MG/1ML INJ ONE (21:50)
[2022-07-30] MEDS: HYDROCODONE/APAP 7.5MG-325MG 1 EA TAB PO PRN (22:42)
[2022-07-31] VITALS (8 sets, daily range): BP systolic 110–164; BP diastolic 59–87
[2022-07-31] MEDS: HYDROCODONE/APAP 5MG-325MG TAB PO PRN ×2 (00:50→12:00)
[2022-07-31] MEDS: ATORVASTATIN 40 MG TAB PO SCH ×2 (00:50→20:20)
[2022-07-31] MEDS: INSULIN LISPRO 100 UNIT/1 ML 3ML VIAL SQ SCH ×4 (00:57→15:59)
[2022-07-31] MEDS: HYDROCODONE/APAP 7.5MG-325MG 1 EA TAB PO PRN ×3 (03:57→20:20)
[2022-07-31 05:45] LABS: BASOPHILS # (AUTO) 0.1 (0.0-0.1); BASOPHILS % 0.4 % (0.0-1.0); EOSINOPHILS # (AUTO) 0.1 (0.0-0.4); EOSINOPHILS % 0.6 % (0.0-6.0); HEMOGLOBIN 7.8 g/dL (14.0-18.0); LYMPHOCYTES # (AUTO) 0.8 (1.0-3.2); LYMPHOCYTES % 3.8 % (18.0-39.1); MEAN CORPUSCULAR HEMOGLOBIN 32.4 pg (28-32); MEAN CORPUSCULAR VOLUME 107.9 fL (81-99); MONOCYTES # (AUTO) 1.2 (0.2-0.8); MONOCYTES % 5.9 % (4.4-11.3); NEUTROPHILS # (AUTO) 17.3 (2.1-6.9); PLATELET COUNT 552 x10e3/uL (140-360); RED BLOOD COUNT 2.41 x10e6/uL (4.3-5.7); RED CELL DISTRIBUTION WIDTH 15.1 % (11.7-14.4)
[2022-07-31 06:05] LABS: ANION GAP 28.2 mmol/L (8-16); CALCIUM 8.2 mg/dL (8.4-10.2); CREATININE, SERUM 9.91 mg/dL (0.72-1.25); POTASSIUM 4.2 mmol/L (3.5-5.1)
[2022-07-31] MEDS: ASPIRIN 81 MG ENTERIC COATED PO SCH (08:37)
[2022-07-31] MEDS: CARVEDILOL 3.125 MG TAB PO SCH ×2 (08:37→16:51)
[2022-07-31] MEDS: SODIUM BICARBONATE 650 MG TAB PO SCH ×2 (08:37→16:53)
[2022-07-31] MEDS: HYDROMORPHONE 1MG/1ML INJ IV PRN ×3 (09:03→17:21)
[2022-07-31] MEDS: NIFEDIPINE CR 30 MG TAB PO SCH (16:53)
[2022-08-01] VITALS (9 sets, daily range): BP systolic 104–165; BP diastolic 63–96
[2022-08-01] MEDS: HYDROCODONE/APAP 7.5MG-325MG 1 EA TAB PO PRN (02:07)
[2022-08-01] MEDS: INSULIN LISPRO 100 UNIT/1 ML 3ML VIAL SQ SCH ×5 (03:03→21:30)
[2022-08-01] MEDS: ASPIRIN 81 MG ENTERIC COATED PO SCH (08:20)
[2022-08-01] MEDS: SODIUM BICARBONATE 650 MG TAB PO SCH ×2 (08:20→17:14)
[2022-08-01] MEDS: CARVEDILOL 3.125 MG TAB PO SCH ×2 (08:21→17:15)
[2022-08-01 14:27] LABS: BASOPHILS # (AUTO) 0.1 (0.0-0.1); BASOPHILS % 0.3 % (0.0-1.0); EOSINOPHILS # (AUTO) 0.2 (0.0-0.4); HEMATOCRIT 23.9 % (38.2-49.6); LYMPHOCYTES # (AUTO) 0.9 (1.0-3.2); MEAN CORPUSCULAR HEMOGLOBIN 31.5 pg (28-32); MEAN CORPUSCULAR HGB CONC 29.3 g/dL (31-35); MEAN CORPUSCULAR VOLUME 107.7 fL (81-99); MONOCYTES # (AUTO) 0.9 (0.2-0.8); MONOCYTES % 3.7 % (4.4-11.3); NEUTROPHILS # (AUTO) 21.3 (2.1-6.9); NEUTROPHILS % 89.6 % (38.7-80.0); PLATELET COUNT 498 x10e3/uL (140-360); RED BLOOD COUNT 2.22 x10e6/uL (4.3-5.7); RED CELL DISTRIBUTION WIDTH 15.3 % (11.7-14.4)
[2022-08-01] MEDS: NIFEDIPINE CR 30 MG TAB PO SCH (17:15)
[2022-08-01] MEDS: ATORVASTATIN 40 MG TAB PO SCH (21:17)
[2022-08-02] VITALS (11 sets, daily range): BP systolic 83–157; BP diastolic 56–89
[2022-08-02 06:01] LABS: BASOPHILS # (AUTO) 0.1 (0.0-0.1); BASOPHILS % 0.3 % (0.0-1.0); EOSINOPHILS # (AUTO) 0.2 (0.0-0.4); EOSINOPHILS % 0.9 % (0.0-6.0); HEMATOCRIT 25.1 % (38.2-49.6); HEMOGLOBIN 7.5 g/dL (14.0-18.0); LYMPHOCYTES # (AUTO) 0.7 (1.0-3.2); LYMPHOCYTES % 3.2 % (18.0-39.1); MEAN CORPUSCULAR HEMOGLOBIN 31.8 pg (28-32); MEAN CORPUSCULAR HGB CONC 29.9 g/dL (31-35); MEAN CORPUSCULAR VOLUME 106.4 fL (81-99); MONOCYTES # (AUTO) 0.9 (0.2-0.8); NEUTROPHILS # (AUTO) 20.7 (2.1-6.9); NEUTROPHILS % 90.5 % (38.7-80.0); PLATELET COUNT 567 x10e3/uL (140-360); RED BLOOD COUNT 2.36 x10e6/uL (4.3-5.7); RED CELL DISTRIBUTION WIDTH 14.9 % (11.7-14.4)
[2022-08-02 06:25] LABS: ALBUMIN 1.5 g/dL (3.5-5.0); ALBUMIN/GLOBULIN RATIO 0.2 (0.8-2.0); ANION GAP 26.8 mmol/L (8-16); CALCIUM 7.5 mg/dL (8.4-10.2); CREATININE, SERUM 9.23 mg/dL (0.72-1.25); POTASSIUM 3.8 mmol/L (3.5-5.1)
[2022-08-02 07:34] LABS: EOSINOPHILS % (MANUAL) 2 % (0-7); LYMPHOCYTES % (MANUAL) 2 % (19-48); MONOCYTES % (MANUAL) 6 % (3.4-9.0); NEUTROPHILS % (MANUAL) 90 % (40-74); PLATELET ESTIMATE SLIGHTLY INCREASED; PLATELET MORPHOLOGY COMMENT NORMAL; RBC MORPHOLOGY COMMENT NORMAL
[2022-08-02] MEDS: SODIUM BICARBONATE 650 MG TAB PO SCH ×2 (08:43→17:37)
[2022-08-02] MEDS: CARVEDILOL 3.125 MG TAB PO SCH ×2 (08:44→17:38)
[2022-08-02] MEDS: ASPIRIN 81 MG ENTERIC COATED PO SCH (08:44)
[2022-08-02] MEDS: INSULIN LISPRO 100 UNIT/1 ML 3ML VIAL SQ SCH ×4 (08:48→22:11)
[2022-08-02] MEDS: ONDANSETRON HCL 4 MG ORAL DISINTEGRATING TAB PO PRN (12:04)
[2022-08-02] MEDS: HYDROCODONE/APAP 7.5MG-325MG 1 EA TAB PO PRN (12:04)
[2022-08-02] MEDS ORDERED: DIPHENHYDRAMINE HCL INJ 50 MG/ML VIAL IV ONE (12:30)
[2022-08-02] MEDS ORDERED: SODIUM CHLORIDE 0.9% 250ML 250 ML IV ONE (12:30)
[2022-08-02] MEDS ORDERED: EPOETIN ALFA-EPBX 10,000 UNIT/ML VIAL SC ONE (12:30)
[2022-08-02] MEDS: NIFEDIPINE CR 30 MG TAB PO SCH (17:38)
[2022-08-02] MEDS: ATORVASTATIN 40 MG TAB PO SCH (22:11)
[2022-08-03] VITALS: BP 120/70
[2022-08-03 04:00] VITALS: BP 120/60
[2022-08-03 06:04] LABS: BASOPHILS # (AUTO) 0.1 (0.0-0.1); BASOPHILS % 0.2 % (0.0-1.0); EOSINOPHILS # (AUTO) 0.2 (0.0-0.4); HEMATOCRIT 24.1 % (38.2-49.6); HEMOGLOBIN 7.2 g/dL (14.0-18.0); LYMPHOCYTES # (AUTO) 0.8 (1.0-3.2); LYMPHOCYTES % 4.1 % (18.0-39.1); MEAN CORPUSCULAR HEMOGLOBIN 32.3 pg (28-32); MEAN CORPUSCULAR HGB CONC 29.9 g/dL (31-35); MEAN CORPUSCULAR VOLUME 108.1 fL (81-99); MONOCYTES % 4.7 % (4.4-11.3); NEUTROPHILS # (AUTO) 18.1 (2.1-6.9); NEUTROPHILS % 87.8 % (38.7-80.0); PLATELET COUNT 560 x10e3/uL (140-360); RED BLOOD COUNT 2.23 x10e6/uL (4.3-5.7); RED CELL DISTRIBUTION WIDTH 14.8 % (11.7-14.4)
[2022-08-03 06:39] LABS: ALBUMIN 1.4 g/dL (3.5-5.0); ALBUMIN/GLOBULIN RATIO 0.2 (0.8-2.0); ANION GAP 26.7 mmol/L (8-16); CALCIUM 7.6 mg/dL (8.4-10.2); CREATININE, SERUM 9.72 mg/dL (0.72-1.25); POTASSIUM 3.7 mmol/L (3.5-5.1)
[2022-08-03] MEDS: INSULIN LISPRO 100 UNIT/1 ML 3ML VIAL SQ SCH ×3 (07:30→16:30)
[2022-08-03 07:57] VITALS: BP_SYST 148; BP_SYST 153; BP_DIAS 63; BP_DIAS 76
[2022-08-03 08:40] VITALS: BP 148/63
[2022-08-03] MEDS: SODIUM BICARBONATE 650 MG TAB PO SCH ×2 (08:42→16:13)
[2022-08-03] MEDS: ASPIRIN 81 MG ENTERIC COATED PO SCH (08:43)
[2022-08-03] MEDS: CARVEDILOL 3.125 MG TAB PO SCH ×2 (08:44→16:13)
[2022-08-03 09:29] LABS: LYMPHOCYTES % (MANUAL) 4 % (19-48); MONOCYTES % (MANUAL) 2 % (3.4-9.0); NEUTROPHILS % (MANUAL) 94 % (40-74)
[2022-08-03 09:30] LABS: PLATELET ESTIMATE SLIGHTLY INCREASED; PLATELET MORPHOLOGY COMMENT NORMAL; RBC MORPHOLOGY COMMENT NORMAL
[2022-08-03 11:48] VITALS: BP 125/93
[2022-08-03] MEDS: NIFEDIPINE CR 30 MG TAB PO SCH (16:13)
[2022-08-03 16:21] VITALS: BP 170/82
== END 2022-08-03 19:00 | DRG 853 ==
LOC: ER 21:05 → ERHOLD 23:43 → MED/SURG2 07-16 02:07
PROVIDERS: ADMIT Internal Medicine; ATTEND Internal Medicine
PROC: 3E03329 Introduction of Other Anti-infective into Peripheral Vein, Percutaneous Approach (ICD-10-PCS; 2022-07-15)
PROC: 3E1M39Z Irrigation of Peritoneal Cavity using Dialysate, Percutaneous Approach (ICD-10-PCS; 2022-07-16)
PROC: 047M3Z1 Dilation of Right Popliteal Artery using Drug-Coated Balloon, Percutaneous Approach (ICD-10-PCS; principal; 2022-07-17)
PROC: 04CM3ZZ Extirpation of Matter from Right Popliteal Artery, Percutaneous Approach (ICD-10-PCS; 2022-07-17)
PROC: 047R3Z1 Dilation of Right Posterior Tibial Artery using Drug-Coated Balloon, Percutaneous Approach (ICD-10-PCS; 2022-07-17)
PROC: 04CP3ZZ Extirpation of Matter from Right Anterior Tibial Artery, Percutaneous Approach (ICD-10-PCS; 2022-07-17)
PROC: 0Y6M0Z9 Detachment at Right Foot, Partial 1st Ray, Open Approach (ICD-10-PCS; 2022-07-20)
PROC: 0Y6M0ZB Detachment at Right Foot, Partial 2nd Ray, Open Approach (ICD-10-PCS; 2022-07-20)
PROC: 0Y6M0ZC Detachment at Right Foot, Partial 3rd Ray, Open Approach (ICD-10-PCS; 2022-07-20)
PROC: 0Y6M0ZD Detachment at Right Foot, Partial 4th Ray, Open Approach (ICD-10-PCS; 2022-07-20)
PROC: 0Y6M0ZF Detachment at Right Foot, Partial 5th Ray, Open Approach (ICD-10-PCS; 2022-07-20)
PROC: 0Y6H0Z3 Detachment at Right Lower Leg, Low, Open Approach (ICD-10-PCS; 2022-07-30)
DX: A41.9 Sepsis, unspecified organism (principal); N18.6 End stage renal disease; E11.52 Type 2 diabetes mellitus with diabetic peripheral angiopathy with gangrene; B37.49 Other urogenital candidiasis; I96 Gangrene, not elsewhere classified; I13.2 Hypertensive heart and chronic kidney disease with heart failure and with stage 5 chronic kidney disease, or end stage renal disease; I50.22 Chronic systolic (congestive) heart failure; I70.261 Atherosclerosis of native arteries of extremities with gangrene, right leg; L02.611 Cutaneous abscess of right foot; M86.171 Other acute osteomyelitis, right ankle and foot; Z16.12 Extended spectrum beta lactamase (ESBL) resistance; E87.20 Acidosis, unspecified; E83.51 Hypocalcemia; E11.22 Type 2 diabetes mellitus with diabetic chronic kidney disease; E11.42 Type 2 diabetes mellitus with diabetic polyneuropathy; E11.621 Type 2 diabetes mellitus with foot ulcer; E11.69 Type 2 diabetes mellitus with other specified complication; E03.9 Hypothyroidism, unspecified; L97.514 Non-pressure chronic ulcer of other part of right foot with necrosis of bone; E87.6 Hypokalemia; L97.529 Non-pressure chronic ulcer of other part of left foot with unspecified severity; B36.8 Other specified superficial mycoses; N47.1 Phimosis; N48.29 Other inflammatory disorders of penis; N40.0 Benign prostatic hyperplasia without lower urinary tract symptoms; Z99.2 Dependence on renal dialysis; Z89.411 Acquired absence of right great toe; Z89.421 Acquired absence of other right toe(s); Z20.822 Contact with and (suspected) exposure to COVID-19; Z83.3 Family history of diabetes mellitus; K29.70 Gastritis, unspecified, without bleeding; K21.9 Gastro-esophageal reflux disease without esophagitis; D64.9 Anemia, unspecified; B96.20 Unspecified Escherichia coli [E. coli] as the cause of diseases classified elsewhere; E66.9 Obesity, unspecified; Z68.29 Body mass index [BMI] 29.0-29.9, adult; Z53.1 Procedure and treatment not carried out because of patient's decision for reasons of belief and group pressure; N47.5 Adhesions of prepuce and glans penis; Z79.82 Long term (current) use of aspirin; Z79.4 Long term (current) use of insulin
CPT/HCPCS: 0223U; 36247; 36415; 37224; 37225; 37232; 37233; 71045; 74176; 75625; 75716; 76937; 80048; 80053; 80061; 82948; 83540; 83605; 83880; 84443; 84466; 85025; 85610; 85730; 86850; 86900; 86920; 87040; 87071; 87086; 87186; 87205; 88304; 88307; 88311; 93005; 93925; 94799; 99152; 99153; 99251; 99284; C1724; C1725; C1760; C1769; C1887; C1894; C2623; J1100; J1170; J1200; J1644; J1756; J2001; J2250; J2405; J2543; J2710; J2930; J3010; J3370; J3480; J7030; J7040; J7050; J7512; Q0162